=== PATIENT | male | born 1940 | race Caucasian/White ===

== ENCOUNTER 2022-02-28 18:57 | Inpatient (IN) | payer MEDICARE, OTHER ==
[~2022-02-28] VITALS: Ht 172.7 cm; Wt 65.8 kg
--- NOTE | 2022-02-28 19:05 | NUR ---
RECEIVED PT 81 YRS MALE TRANSFER FROM [facility] WITH ALOC ( ALTER THEN NORMAL AND LOW O2 SAT PT EYE CONTACT WITH
--- NOTE | 2022-02-28 19:26 | NUR ---
COVID ANTIGEN SWAB DONE AND SENT TO THE LAB
[2022-02-28] MEDS ORDERED: CEFEPIME 1 GM in IV D5W 50 ML IV ONE (19:30)
[2022-02-28] MEDS ORDERED: VANCOMYCIN 1 GM in IV D5W 250 ML IV ONE (19:30)
--- NOTE | 2022-02-28 19:30 | NUR ---
URINE COLLECTED AND SENTT O LAB
--- NOTE | 2022-02-28 19:34 | NUR ---
HAND OFF ADELITA RN
[2022-02-28] MEDS ORDERED: IV NS 0.9% 2,000 ML IV ONE (20:00)
[2022-02-28] MEDS ORDERED: ACETAMINOPHEN 650 MG/SUPP.RECT RC ONE (20:00)
[2022-02-28 20:02] LABS: BILIRUBIN,URINE NEGATIVE (NEGATIVE); COLOR,URINE YELLOW (YELLOW); LEUKOCYTE ESTERASE ,URINE NEGATIVE (NEGATIVE); NITRITE, URINE NEGATIVE (NEGATIVE); PH,URINE 5.5 (5.0-8.0); PROTEIN,URINE 30 mg/dl (NEGATIVE); UGLUCOSE NEGATIVE (NEGATIVE); UROBILINOGEN,URINE 0.2 EU/dL (0.2)
--- NOTE | 2022-02-28 20:03 | NUR ---
[facility] (POA)[phone]/ ELMO (DAUGHTER) IS ALLOWED TO RECEIVE UPDATE ABOUT HIS FATHER.
--- NOTE | 2022-02-28 20:06 | NUR ---
ER CLERK TRAVEL RESERVATIONS AT BEDSIDE
--- NOTE | 2022-02-28 20:13 | NUR ---
PATIENT PASSED A LARGE BOWEL MOVEMENT, CHANGED AND CLEANED.
[2022-02-28 20:15] LABS: BACTERIA,URINE RARE /HPF (None Seen); RBC,URINE 21-50 /HPF (0-2); SQUAMOUS EPITHELIAL CELL,UR 0-2 /HPF (None Seen); WBC,URINE 0-2 /HPF (0-3)
[2022-02-28 20:16] LABS: CALCIUM OXALATE CRYSTALS,UR Few /HPF (None Seen); URIC ACID CRYSTALS,URINE Moderate /HPF (None Seen)
[2022-02-28 20:41] LABS: BASOPHILS # (AUTO) 0.4 K/uL (0.0-0.2); BASOPHILS % (AUTO) 0.6 % (0.0-2.0); HEMATOCRIT 34 % (39-51); HEMOGLOBIN 10.1 g/dL (13.5-17.5); LYMPHOCYTES # (AUTO) 0.6 K/uL (0.8-4.8); LYMPHOCYTES % (AUTO) 0.9 % (20.0-44.0); MEAN CORPUSCULAR HGB CONC 30 g/dl (31.0-36.0); MEAN CORPUSCULAR VOLUME 85 fL (80-96); MONOCYTES # (AUTO) 1.2 K/uL (0.1-1.30); MONOCYTES % (AUTO) 1.9 % (2.0-12.0); NEUTROPHILS # (AUTO) 60.8 K/uL (1.8-8.9); NEUTROPHILS % (AUTO) 96.6 % (43.0-81.0); PLATELET COUNT (AUTO) 494 K/uL (150-450); RED BLOOD CELL COUNT(AUTO) 3.94 MIL/uL (4.5-6.0)
[2022-02-28 20:48] LABS: CALCIUM, SERUM 9.4 mg/dL (8.5-10.1); CARBON DIOXIDE 22 mmol/L (21-32); CHLORIDE 108 mmol/L (98-107); CREATININE 1.6 mg/dL (0.6-1.3); GLUCOSE 130 mg/dL (74-106); POTASSIUM 4.3 mmol/L (3.5-5.1); SODIUM SERUM 141 mmol/L (136-145); UREA NITROGEN, BLOOD 27 mg/dL (7-18)
[2022-02-28 20:59] LABS: THYROID STIMULATING HORMONE 13.396 uIU/mL (0.358-3.74)
[2022-02-28 21:01] LABS: ALANINE AMINOTRANSFERASE 21 U/L (12-78); ALBUMIN 1.8 g/dL (3.4-5.0); ALKALINE PHOSPHATASE 99 U/L (46-116); ASPARTATE AMINOTRANSFERASE 31 U/L (15-37); BILIRUBIN,DIRECT 0.1 mg/dL (0.0-0.2); BILIRUBIN,TOTAL 0.4 mg/dL (0.2-1.0); TOTAL PROTEIN, SERUM 6.6 g/dL (6.4-8.2)
[2022-02-28 21:03] LABS: ALCOHOL, BLOOD < 3 mg/dL (0-0)
[2022-02-28] MEDS ORDERED: IOHEXOL-300 100 ML VIAL IV ONE (21:07)
[2022-02-28 21:43] LABS: SERUM AMMONIA 53 umol/L (11-32)
[2022-02-28 21:44] LABS: BAND % (MANUAL) 2 % (0.0-5.0); LYMPHOCYTES % (MANUAL) 3 % (16-48); MONOCYTES % (MANUAL) 4 % (0-11.0); NEUTROPHILS % (MANUAL) 91 (42-76)
--- NOTE | 2022-02-28 21:48 | NUR ---
[facility] PAGED
--- NOTE | 2022-02-28 22:29 | NUR ---
REPORT GIVEN TO JUAN LANGE
--- NOTE | 2022-02-28 22:30 | NUR ---
RN NOTE RECEIVED REPORT FROM FIELD SERVICE TECHNICIAN POULTRYJUAN RUIZ
--- NOTE | 2022-02-28 22:46 | NUR ---
TROP 91
--- NOTE | 2022-02-28 23:02 | NUR ---
pt transferred to 103 via acls
--- NOTE | 2022-02-28 23:08 | NUR ---
RN NOTE RADIOLOGY ESCORTED PT FOR HEAD AND CHEST CT.
--- NOTE | 2022-02-28 23:27 | NUR ---
RN NOTE PT RETURNED FROM RADIOLOGY
--- NOTE | 2022-02-28 23:41 | NUR ---
RN INITIAL NOTE PT WITH ADMITTING DX OF SEVERE SEPSIS AND NSTEMI. MEDICAL HX OF DEMENTIA, CHOLECYSTECTOMY, AMS, ENCEPHALOPATHY, AFLUTTER, PNEUMONITIS, UTI, GI HEMORRHAGE HEMORRHAGE, CAROL, MDD, OA, ANEMIA, HYPOVOLEMIA, MRSA, MELENA. PT ARRIVED TO UNIT VIA GURNEY. PT NOTED TO BE NON-VERBAL THEREFORE CANNOT ASSESS NEURO STATUS, BUT DOES MAKE MOANING NOISES. PT ON NC AT 3L WITH CURRENT O2SAT OF 97%; NO S/S OF RESP DISTRESS, NO SOB OR COUGH, NON-LABORED AND EQUAL BREATHING, APPEARS COMFORTABLE. ATTACHED TO EXTERNAL MONITOR, SR WITH HR OF 93. SHANKAR INTACT AND PATENT WITH NO SIGNS OF LEAKING, DRAINING CLEAR AND YELLOW URINE. PT NOTED TO HAVE RECTAL HEMORRHOID. IV ACCESS ON LEFT HAND 18G, INTACT AND PATENT, FLUSHES EASILY WITH NO RESISTANCE; CURRENTLY HAS NO FLUIDS/MEDS RUNNING THROUGH IT. SKIN ASSESSED AND CLEANED, PICTURES TAKEN AND PLACED IN CHART. BED IN LOWEST POSITION, CALL LIGHT WITHIN REACH, SIDE RAILS UP X3. WILL INITIATE PLAN OF CARE.
[2022-03-01] VITALS: BP 141/61
[2022-03-01] MEDS ORDERED: ONDANSETRON HCL/PF 4 MG/2 ML VIAL IVP PRN
[2022-03-01] MEDS ORDERED: MAGNESIUM HYDROXIDE 30 ML UDC PO PRN
[2022-03-01] MEDS ORDERED: Z GUARD REMEDY 4 OZ OINT TP PRN
[2022-03-01] MEDS ORDERED: ACETAMINOPHEN 650 MG/SUPP.RECT RC PRN
[2022-03-01] MEDS ORDERED: MAG HYDROX/AL HYDROX/SIMETH 30 ML UDC PO PRN
[2022-03-01] MEDS ORDERED: ZOSYN IVPB 3.375 G in IV D5W 50ml IV ONE (01:00)
[2022-03-01] MEDS: IV D5/0.45 NACL 1,000 ML IV PRN ×2 (01:01→16:42)
[2022-03-01] MEDS ORDERED: PIPERACILLIN /TAZOBACTAM 3.375 G VIAL IV ONE (01:02)
[2022-03-01 04:00] VITALS: BP 99/53
--- NOTE | 2022-03-01 04:53 | NUR ---
RN NOTE SPOKE TO PT'S DAUGHTER ELMO AND PROVIDED WITH UPDATES.
--- NOTE | 2022-03-01 04:55 | NUR ---
RN NOTE ELMO (DAUGHTER):
--- NOTE | 2022-03-01 06:40 | NUR ---
PHARMACY INTAKE COORDINATOR CLOSING NOTE PT REMAINS IN BED, AWAKE, UNABLE TO MAKE VERBAL RESPONSE WHEN TALKED TO. PT REMAINS ON 3L NC WITH O2SAT RANGING FROM 96%-97% THROUGHOUT THE NIGHT; PT SHOWED NO S/S OF RESP DISTRESS, NO SOB OR COUGH, NON-LABORED AND EQUAL BREATHING. ATTACHED TO EXTERNAL MONITOR, SR WITH ARTIFACTS D/T PT'S INVOLUNTARY MOVEMENTS, HR RANGED FROM 93-97; HR NOTED TO BE ELEVATED UP TO 170 WHEN CLEANING PT. SHANKAR INTACT AND PATENT, NO SIGNS OF LEAKING, DRAINING NYLA-COLORED URINE. IV ACCESS ON LEFT HAND 18G, D5 1/2 NS RUNNIGN AT 75 ML/HR; IV INTACT AND PATENT, FLUSHES EASILY WITH NO RESISTANCE. BED IN LOWEST POSITION, CALL LIGHT WITHIN REACH, SIDE RAILS UP X3. WILL ENDORSE TO DAYSHIFT NURSE TO CONTINUE CARE.
[2022-03-01 07:15] LABS: BASOPHILS # (AUTO) 0.1 K/uL (0.0-0.2); BASOPHILS % (AUTO) 0.2 % (0.0-2.0); HEMATOCRIT 31 % (39-51); HEMOGLOBIN 9.2 g/dL (13.5-17.5); LYMPHOCYTES % (AUTO) 2.1 % (20.0-44.0); MEAN CORPUSCULAR HGB CONC 30 g/dl (31.0-36.0); MEAN CORPUSCULAR VOLUME 86 fL (80-96); MONOCYTES # (AUTO) 1.6 K/uL (0.1-1.30); MONOCYTES % (AUTO) 3.3 % (2.0-12.0); NEUTROPHILS # (AUTO) 46.1 K/uL (1.8-8.9); NEUTROPHILS % (AUTO) 94.4 % (43.0-81.0); PLATELET COUNT (AUTO) 417 K/uL (150-450); RED BLOOD CELL COUNT(AUTO) 3.54 MIL/uL (4.5-6.0)
--- NOTE | 2022-03-01 07:15 | NUR ---
RN OPEN NOTE PT REMAINS IN BED, AWAKE, NON VERBAL PT IS ON 3L NC WITH O2SAT RANGING FROM 96%PT SHOWED NO S/S OF RESP DISTRESS, NO SOB OR COUGH, NON-LABORED AND EQUAL BREATHING. SR WITH , HR RANGED FROM 97; AT ORTHOPEDIC SURGEON HR NOTED TO BE ELEVATED UP TO 170 WHEN CLEANING PT. HAS SHANKAR CATH IN PLACE DRAINING NYLA COLOR URINE, IV ACCESS ON LEFT HAND 18G, D5 1/2 NS RUNNING AT 75 ML/HR; IV INTACT AND PATENT, FLUSHES EASILY WITH NO RESISTANCE. BED IN LOWEST POSITION, CALL LIGHT WITHIN REACH, SIDE RAILS UP X3. WILL CONTINUE TO FALLOW PLAN OF CARE
[2022-03-01 07:26] LABS: WHITE BLOOD COUNT (AUTO) 48.9 K/uL (4.3-11.0)
[2022-03-01 07:35] LABS: CALCIUM, SERUM 8.5 mg/dL (8.5-10.1); CREATININE 1.3 mg/dL (0.6-1.3); MAGNESIUM 2.3 mg/dL (1.8-2.4); PHOSPHORUS 2.2 mg/dL (2.5-4.9); POTASSIUM 4.2 mmol/L (3.5-5.1)
[2022-03-01] MEDS: PIPERACILLIN /TAZOBACTAM 2.25 G in IV D5W 50 ML IV SCH ×3 (07:43→17:13)
[2022-03-01 08:00] VITALS: BP 146/94
[2022-03-01] MEDS: PANTOPRAZOLE 40 MG VIAL IV SCH (08:45)
[2022-03-01] MEDS: HEPARIN SODIUM, PORCINE 5000 UNITS/1 ML VIAL SQ SCH ×2 (08:49→21:21)
--- NOTE | 2022-03-01 09:11 | NUR ---
patient on multiple iv meds,only have one line hard stick,requested midline .
[2022-03-01] MEDS ORDERED: Sodium Phosphate 15 MMOL in IV NS 0.9% 245 ML IV SCH (11:00)
[2022-03-01 12:00] VITALS: BP 112/60
[2022-03-01] MEDS ORDERED: NA PHOS,M-B/NA PHOS,DI-BA 1 EA ENEMA RC PRN ×2 (12:30)
--- NOTE | 2022-03-01 15:52 | NUR ---
unable to tolerate ngt placement,desaturates to low 80's,and ngt coiling,pt. c/o nose bleed already, notified.
[2022-03-01 16:00] VITALS: BP 109/60
--- NOTE | 2022-03-01 18:25 | NUR ---
PATIENT IS IN BED , NON VERBAL , CONFUSED, NPO BECAUSE TO FAILURE SWALLOWING TEST , MULTIPLE ATTEMPTS TO PLACE NG TUNE WAS NOT SUCCESSFUL , PENDING SPOUSE CONSENT FOR G TUBE , SPOUSE WANTS TO PATIENT RECEIVED ANTIBIOTICS FOR FEW DAYS AND HOPING THAT PATIENT WILL BE ABLE TO SWALLOW . PATIENT IS ON O2 2 3L/H , BREATHING NON LABORED , NO SIGHS OF DISTRESS. 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 PATIENT HAS SHANKAR VATH IN PLCE DRANING CLEAR YELLOW URINE. MEDICATIONS WERE ADMINISTERED , ALL NEEDS ARE MET . BED IS AT LOWEST , BED SIDE RAILS ARE UP , CALL LIGHT WITHIN REACH .
--- NOTE | 2022-03-01 19:10 | NUR ---
RN NOTE RECEIVED PT IN BED, ON SEMI GAY'S, AO X 1, IN NO ACUTE DISTRESS, BREATHING EVEN AND UNLABORED, SATURATION AT 99% ON 3L VIA NC, ST ON THE MONITOR, HR IS 109. IV LINE AT L HAND 18G AND RE MIDLINE PATENT AND FLUSHING WELL, NO S/S OF INFECTION OR INFILTRATION, IV FLUID OF D5 1/2 NS INFUSING AT 75 ML/HR CHANGED TO NS AT 75 ML/HR PER MD ORDER. SHANKAR CATHETER DRAINING TO A C LEAR YELLOW OUTPUT. SAFETY MEASURES IMPLEMENTED. PATIENT BED ALARM IS ON. HEAD OF BED ELEVATED. BED IS LOCKED, IN LOWEST POSITION AND SIDE RAILS UP. CALL LIGHT WITHIN REACH OF THE PATIENT. WILL CONTINUE TO MONITOR AND REASSESS FOR ANY CHANGES.
[2022-03-01] MEDS: VANCOMYCIN 1 GM in IV D5W 250 ML IV SCH (19:53)
[2022-03-01 20:00] VITALS: BP 102/54
[2022-03-01] MEDS ORDERED: VANCOMYCIN 0.75 GM in IV D5W 250 ML IV SCH (20:00)
[2022-03-01] MEDS: IV NS 0.9% 1,000 ML IV PRN (21:13)
[2022-03-02] VITALS: BP 99/42
[2022-03-02] MEDS: PIPERACILLIN /TAZOBACTAM 2.25 G in IV D5W 50 ML IV SCH ×4 (00:28→17:39)
[2022-03-02 04:00] VITALS: BP 127/51
--- NOTE | 2022-03-02 05:00 | NUR ---
RN NOTE NG TUBE INSERTED BY ELEVATOR MECHANIC APPRENTICE, POSITIVE PLACEMENT NOTED BY AUSCULTATION BUT NO OUTPUT NOTED ON ASPIRATION. CXR WAS DONE TO VERIFY PLACEMENT, AWAITING RESULTS.
--- NOTE | 2022-03-02 06:07 | NUR ---
RN NOTE CXR RESULTED STATED NO ACUTE FINDINGS AT CHEST COMPARED TO PREVIOUS CXR ON 02/28/2022 BUT NO MENTION OF NG TUBE PLACEMENT. TELEPHONE CALL TO RADIOLOGY. NO ANSWER AFTER MULTIPLE ATTEMPTS. WILL TRY AGAIN.
[2022-03-02 06:54] LABS: BASOPHILS % (AUTO) 0.1 % (0.0-2.0); EOSINOPHILS % (AUTO) 0.2 % (0.0-6.0); HEMATOCRIT 28 % (39-51); HEMOGLOBIN 8.5 g/dL (13.5-17.5); LYMPHOCYTES # (AUTO) 0.7 K/uL (0.8-4.8); LYMPHOCYTES % (AUTO) 2.1 % (20.0-44.0); MEAN CORPUSCULAR HGB CONC 31 g/dl (31.0-36.0); MEAN CORPUSCULAR VOLUME 83 fL (80-96); MONOCYTES # (AUTO) 1.1 K/uL (0.1-1.30); MONOCYTES % (AUTO) 3.3 % (2.0-12.0); NEUTROPHILS # (AUTO) 30.6 K/uL (1.8-8.9); NEUTROPHILS % (AUTO) 94.3 % (43.0-81.0); PLATELET COUNT (AUTO) 395 K/uL (150-450); RED BLOOD CELL COUNT(AUTO) 3.31 MIL/uL (4.5-6.0)
--- NOTE | 2022-03-02 06:57 | NUR ---
RN NOTE TELEPHONE CALL TO PHARMACY REGARDING CXR RESULT STATING NO ACUTE FINDINGS AT CHEST COMPARED TO PREVIOUS CXR ON 02/28/2022 BUT NO MENTION OF NG TUBE PLACEMENT. SPOKE WITH JESSICA, STATED HE WILL CALL STAT MANUELITO VAZQUEZ TO VERIFY AND WILL CALL BACK. ENDORSED TO FRAN MARTINEZ TO FOLLOW UP.
[2022-03-02 06:58] LABS: WHITE BLOOD COUNT (AUTO) 32.4 K/uL (4.3-11.0)
[2022-03-02 07:25] LABS: CALCIUM, SERUM 8.3 mg/dL (8.5-10.1); CREATININE 1.3 mg/dL (0.6-1.3); MAGNESIUM 1.9 mg/dL (1.8-2.4); PHOSPHORUS 2.4 mg/dL (2.5-4.9); POTASSIUM 3.1 mmol/L (3.5-5.1)
--- NOTE | 2022-03-02 07:30 | NUR ---
RN OPENING NOTE PATIENT LAYING ON THE BED AWAKE A&OX1. ALL VSS, PATIENT SATTING AT 100% ON 2L NC. SR. VOIDING VIA SHANKAR CATHETER. DIET NPO. IV L HAND #18G PATENT, INTACT, AND FLUSHED WITH NS. RE MIDLINE NS @75ML/HR. ALL SAFETY FALL PRECAUTIONS IN PLACE BED LOCK ON, BED ALARM ON, SIDE RAILS UP, CALL LIGHT WITHIN REACH. BED IN LOWEST POSITION. WILL CONTINUE TO MONITOR.
[2022-03-02 07:49] LABS: LYMPHOCYTES % (MANUAL) 4 % (16-48); MONOCYTES % (MANUAL) 3 % (0-11.0); NEUTROPHILS % (MANUAL) 93 (42-76)
[2022-03-02 08:00] VITALS: BP 143/85
[2022-03-02] MEDS ORDERED: POTASSIUM PHOSPHATE MM 15 MMOL in IV NS 0.9% 250 ML IV SCH (09:00)
[2022-03-02] MEDS: PANTOPRAZOLE 40 MG VIAL IV SCH (09:32)
[2022-03-02] MEDS: POTASSIUM PHOSPHATE MM 7.5 MMOL in IV NS 0.9% 100 ML IV SCH ×2 (09:32→12:39)
[2022-03-02] MEDS: HEPARIN SODIUM, PORCINE 5000 UNITS/1 ML VIAL SQ SCH ×2 (09:35→20:27)
[2022-03-02] MEDS ORDERED: PANT40TA2 PO (09:51)
[2022-03-02] MEDS ORDERED: ASCO-340 PO (09:51)
[2022-03-02] MEDS ORDERED: COLL30OI TP (09:51)
[2022-03-02] MEDS ORDERED: MULT-447 PO (09:51)
[2022-03-02] MEDS ORDERED: POVI3780 TP (09:51)
[2022-03-02] MEDS ORDERED: CHOL500062 PO (09:51)
[2022-03-02] MEDS ORDERED: LOSA50TA39 PO (09:51)
[2022-03-02] MEDS ORDERED: TYL2T PO (09:51)
[2022-03-02] MEDS ORDERED: NYST15OI2 TP (09:51)
[2022-03-02] MEDS ORDERED: FLUO20CA42 PO (09:51)
[2022-03-02] MEDS ORDERED: VITA1TAB56 PO (09:51)
[2022-03-02] MEDS ORDERED: MEMA10TA PO (09:51)
[2022-03-02] MEDS ORDERED: GABA250S2 PO (09:51)
[2022-03-02] MEDS ORDERED: ZINC1CAP3 PO (09:51)
[2022-03-02] MEDS ORDERED: LEVE500T9 PO (09:51)
[2022-03-02] MEDS ORDERED: POTA20TA83 PO (09:51)
[2022-03-02] MEDS ORDERED: APIX2.5T PO (09:51)
[2022-03-02] MEDS ORDERED: ACET-868 PO (09:51)
[2022-03-02] MEDS: POTASSIUM CL. PREMIX PERIPHER. 50 ML IV SCH ×2 (11:51→12:40)
[2022-03-02 12:00] VITALS: BP 115/70
[2022-03-02 16:00] VITALS: BP 113/55
[2022-03-02 16:51] LABS: D-DIMER 3.63 mg/L(FEU (0.17-0.50)
--- NOTE | 2022-03-02 19:09 | NUR ---
Ending report patient stable all vss care endorsed to night filler.
[2022-03-02 20:00] VITALS: BP 109/64
[2022-03-02] MEDS: VANCOMYCIN 1 GM in IV D5W 250 ML IV SCH (20:26)
[2022-03-02] MEDS: JEVITY 1.2 CAL 1,000 ML BOTTLE GT SCH (20:35)
[2022-03-03] VITALS: BP 108/81
[2022-03-03] MEDS: PIPERACILLIN /TAZOBACTAM 2.25 G in IV D5W 50 ML IV SCH ×5 (00:04→23:25)
[2022-03-03 04:00] VITALS: BP 123/57
[2022-03-03] MEDS: IV NS 0.9% 1,000 ML IV PRN ×2 (04:17→17:28)
--- NOTE | 2022-03-03 06:44 | NUR ---
RN CLOSING NOTE A/OX1, CONFUSED. 2l VIA nc. NO S/S SOB. NO C/O PAIN. SINUS RHYTHM WITH PVCS ON THE MONITOR. SHANKAR CATHETER DRAINING TO GRAVITY, URINE YELLOW WITH SEDIMENT. NO BM THIS SHIFT. PENDING OB STOOL COLLECTION. BILATERAL SOFT WRIST RESTRAINTS PRESENT, NO REDNESS, GOOD CAP REDILL. MEPILEX ON WOUNDS PENDING WOUND CONSULT. NG TUBE PRESENT, JEVITY STARTED AT 20ML, NO RESIDUAL , INCREASED TO 30ML AT 0200. RE RUNNING NS@75ML/HR. PENDING ECHO.
[2022-03-03 07:17] LABS: BASOPHILS % (AUTO) 0.1 % (0.0-2.0); EOSINOPHILS % (AUTO) 0.8 % (0.0-6.0); HEMATOCRIT 24 % (39-51); HEMOGLOBIN 7.4 g/dL (13.5-17.5); LYMPHOCYTES # (AUTO) 0.9 K/uL (0.8-4.8); LYMPHOCYTES % (AUTO) 5.7 % (20.0-44.0); MEAN CORPUSCULAR HGB CONC 31 g/dl (31.0-36.0); MEAN CORPUSCULAR VOLUME 83 fL (80-96); MONOCYTES # (AUTO) 0.7 K/uL (0.1-1.30); MONOCYTES % (AUTO) 4.4 % (2.0-12.0); NEUTROPHILS # (AUTO) 14.4 K/uL (1.8-8.9); PLATELET COUNT (AUTO) 310 K/uL (150-450); RED BLOOD CELL COUNT(AUTO) 2.86 MIL/uL (4.5-6.0); WHITE BLOOD COUNT (AUTO) 16.1 K/uL (4.3-11.0)
--- NOTE | 2022-03-03 07:25 | NUR ---
SUPERVISOR OFFSET PLATE PREPARATION OPENING NOTES RECEIVED PT ASLEEP IN BED, EASILY AROUSED. PT IS A/O x1, REORIENTED PT NEEDED. ON O2 AT 2L/MIN VIA NASAL CANNULA, TOLERATING WELL. NO SOB NOTED. NOT IN ANY SIGN OF RESPIRATORY DISTRESS. ON CARDIAC TELE MONITOR WITH CURRENT READING SINUS RHYTHM WITH PVCS, HR 82. IV ACCESS ON RE MIDLINE INTACT AND PATENT WITH NS INFUSING AT 75ML/HR. NG TUBE IN PLACE WITH JEVITY 1.2 FEEDING RUNNING AT 30ML/HR. KEPT HEAD OF BED ELEVATED. SAFETY PRECAUTIONS IN PLACE: BED IN LOWEST AND LOCKED POSITION, BED ALARM ON, SIDE RAILS UP, AND CALL LIGHT WITHIN REACH. WILL CONTINUE TO MONITOR PT.
[2022-03-03 07:56] LABS: CALCIUM, SERUM 7.6 mg/dL (8.5-10.1); CREATININE 1.3 mg/dL (0.6-1.3); PHOSPHORUS 2.1 mg/dL (2.5-4.9)
[2022-03-03 08:00] VITALS: BP 130/56
[2022-03-03 08:01] LABS: POTASSIUM 2.8 mmol/L (3.5-5.1)
--- NOTE | 2022-03-03 08:05 | NUR ---
RN NOTE INCREASED PT'S NGT FEEDING FROM 30ML/HR TO 40ML/HR ORDERED TO INCREASE 10ML Q6HRS TO REACH THE GOAL OF 60ML/HR. LAST NGT FEEDING INCREASE WAS AT 0200. PT ABLE TO TOLERATE CURRENT FEEDING SETTINGS. RESIDUAL WAS 5ML. WILL CONTINUE TO MONITOR PT.
[2022-03-03 08:06] LABS: IMMUNOGLOBULIN A, SERUM 257 mg/dL (61-437); IMMUNOGLOBULIN G, SERUM 1148 mg/dL (603-1613); IMMUNOGLOBULIN M, SERUM 86 mg/dL (15-143)
[2022-03-03] MEDS: PANTOPRAZOLE 40 MG/PACK PACK GT SCH (09:57)
[2022-03-03] MEDS: HEPARIN SODIUM, PORCINE 5000 UNITS/1 ML VIAL SQ SCH ×2 (09:59→21:06)
[2022-03-03] MEDS ORDERED: NEUTRA PHOS 1 POWD.PACKET GT ONE (10:00)
[2022-03-03] MEDS ORDERED: POTASSIUM CHLORIDE 20 MEQ POWDER PACKET GT SCH (10:00)
--- NOTE | 2022-03-03 10:03 | NUR ---
RN NOTE PT IS SCHEDULED FOR HEPARIN SQ AT 0900. AB PANTOJA NP MADE AWARE OF PT'S HEMOGLOBIN DECREASED. HEMOGLOBIN WAS 8.5 YESTERDAY 03/02/22 TO HEMOGLOBIN 7.4 TODAY. PER AB, TO STILL ADMINISTER HEPARIN SQ.
--- NOTE | 2022-03-03 10:11 | NUR ---
RN NOTE PT SEEN BY AB PANTOJA NP WITH ORDERS OF ST EVALUATION DUE TO DIFFICULTY SWALLOWING.
--- NOTE | 2022-03-03 10:32 | NUR ---
WOUND CARE CONSULT: PT RESTING AT THIS TIME. REVIEWED CHART, NURSING DOCUMENTATION ANDPHOTOS WHICH INDICATE RT HIP INTACT DEEP TISSUE INJURY/SCARRING, RT HEEL ULCER AND SACRAL DEEP TISSUE INJURY, ALL PRESENT ON ADMISSION. DR FLOWERS AND DR KILLIAN NOTIFIED OF SURGICAL AND DPM CONSULT REQUESTS. PT IS ON VIC ISOFLEX LOW AIRLOSS BED. DISCUSSED SKIN PROTECTION WITH NURSING STAFF. M D IN AGREEMENT WITH PLAN OF CARE.
[2022-03-03 12:00] VITALS: BP 130/54
--- NOTE | 2022-03-03 14:05 | NUR ---
RN NOTE INCREASED PT'S NGT FEEDING AGAIN FROM 40ML/HR TO 50ML/HR ORDERED UNTIL 60ML/HR IS REACHED. PT ABLE TO TOLERATE CURRENT FEEDING SETTINGS WITH 5ML RESIDUAL. WILL CONTINUE TO MONITOR PT.
--- NOTE | 2022-03-03 14:40 | NUR ---
RN NOTE RECEIVED AN ORDER FROM AB PANTOJA NP, TO START PATIENT ON MILD SLIDING SCALE Q6HRS DUE TO PT BEING ON NG TUBE FEEDING.
[2022-03-03] MEDS ORDERED: DEXTROSE 50%-WATER 50 ML DISP.SYRIN IV PRN (15:00)
[2022-03-03 16:00] VITALS: BP 119/59
[2022-03-03] MEDS: BLOOD SUGAR DIAGNOSTIC 1 EACH STRIP IN SCH ×2 (17:28→23:35)
[2022-03-03] MEDS: INSULIN REGULAR, HUMAN 100 UNIT/ML 3 ML VIAL SQ PRN ×2 (17:29→23:24)
--- NOTE | 2022-03-03 18:36 | NUR ---
DISPATCHER TUGBOAT CLOSING NOTES PT IN BED AWAKE WITH AT BEDSIDE. PT IS A/O x1, REORIENTED PT NEEDED. ON O2 AT 2L/MIN VIA NASAL CANNULA, TOLERATING WELL. NO SOB NOTED. NOT IN ANY SIGN OF RESPIRATORY DISTRESS. ON CARDIAC TELE MONITOR WITH CURRENT READING SINUS RHYTHM WITH PVCS, HR 75. NO SIGNS OF CARDIAC DISTRESS NOTED AT THIS TIME. IV ACCESS ON RE MIDLINE INTACT AND PATENT WITH NS INFUSING AT 75ML/HR. PT'S BOTH WRIST SOFT RESTRAINTS IN PLACE WITH NO CIRCULATION OR SKIN ISSUES NOTED. NG TUBE IN PLACE WITH JEVITY 1.2 FEEDING RUNNING AT 50ML/HR. KEPT HEAD OF BED ELEVATED. ALL NEEDS ATTENDED. KEPT CLEAN AND COMFORTABLE. TURNED AND REPOSITIONED Q2HRS AND NEEDED. SAFETY PRECAUTIONS IN PLACE: BED IN LOWEST AND LOCKED POSITION, BED ALARM ON, SIDE RAILS UP, AND CALL LIGHT WITHIN REACH. WILL ENDORSE TO COPY COORDINATOR NURSE FOR MATT.
--- NOTE | 2022-03-03 19:38 | NUR ---
STRIPPER CUTTER MACHINE OPENING NOTES: RECEIVED PT AWAKE IN BED. A/O x1, REORIENTED PT NEEDED. ON O2 AT 2L/MIN VIA NASAL CANNULA, TOLERATING WELL. NO SOB NOTED. NOT IN ANY SIGN OF RESPIRATORY DISTRESS. ON CARDIAC TELE MONITOR WITH CURRENT READING SINUS RHYTHM WITH PVCS. IV ACCESS ON RE MIDLINE INTACT AND PATENT WITH NS INFUSING AT 75ML/HR. NG TUBE IN PLACE WITH JEVITY 1.2 FEEDING RUNNING AT 50ML/HR. KEPT HEAD OF BED ELEVATED. SAFETY PRECAUTIONS IN PLACE: BED IN LOWEST AND LOCKED POSITION, BED ALARM ON, SIDE RAILS UP, AND CALL LIGHT WITHIN REACH. WILL CONTINUE TO MONITOR THROUGHOUT THE SHIFT.
[2022-03-03 20:00] VITALS: BP 111/57
[2022-03-03] MEDS: VANCOMYCIN 1 GM in IV D5W 250 ML IV SCH (20:57)
--- NOTE | 2022-03-03 23:35 | NUR ---
RN NOTE BS CHECKED AT 145 MG/DL, 2 UNITS INSULIN GIVEN PER SLIDING SCALE, WILL CONT TO MONITOR.
[2022-03-04] VITALS: BP 140/62
[2022-03-04] MEDS: JEVITY 1.2 CAL 1,000 ML BOTTLE GT SCH ×2 (00:04→21:12)
[2022-03-04 04:00] VITALS: BP 114/52
[2022-03-04] MEDS: PIPERACILLIN /TAZOBACTAM 2.25 G in IV D5W 50 ML IV SCH (05:36)
[2022-03-04] MEDS: BLOOD SUGAR DIAGNOSTIC 1 EACH STRIP IN SCH ×4 (05:36→23:25)
[2022-03-04] MEDS: INSULIN REGULAR, HUMAN 100 UNIT/ML 3 ML VIAL SQ PRN (05:38)
--- NOTE | 2022-03-04 05:56 | NUR ---
RN NOTE BS CHECKED AT 132 MG/DL, 2 UNITS INSULIN GIVEN PER SLIDING SCALE.
--- NOTE | 2022-03-04 06:46 | NUR ---
CLINICAL AIDE CLOSING NOTES: PATIENT REMAINS IN BED. A/O x1, ON O2 AT 2L/MIN VIA NASAL CANNULA, TOLERATING WELL. NO SOB NOTED. NOT IN ANY SIGN OF RESPIRATORY DISTRESS. ON CARDIAC TELE MONITOR WITH CURRENT READING SINUS RHYTHM WITH PVCS. IV ACCESS ON RE MIDLINE INTACT AND PATENT WITH NS INFUSING AT 75ML/HR. NG TUBE IN PLACE WITH JEVITY 1.2 FEEDING RUNNING AT 60ML/HR. KEPT HEAD OF BED ELEVATED. WITH FOLEYCATH DRAINING TO GRAVITY WITH YELLOWISH COLORED URINE. SAFETY PRECAUTIONS IN PLACE, ALL DUE MEDS GIVEN, KEPT DRY AND CLEAN, BED IN LOWEST AND LOCKED POSITION, BED ALARM ON, SIDE RAILS UP, AND CALL LIGHT WITHIN REACH. WILL ENDORSE TO AM SHIFT NURSE. .
[2022-03-04 07:07] LABS: *SPE A/G RATIO 0.6 (0.7-1.7); *SPE ALPHA-1-GLOBULIN 0.4 g/dL (0.0-0.4); *SPE ALPHA-2-GLOBULIN 0.8 g/dL (0.4-1.0); *SPE BETA GLOBULIN 0.6 g/dL (0.7-1.3); *SPE M-SPIKE Not Observed g/dL (Not Observed)
[2022-03-04 07:26] LABS: BASOPHILS % (AUTO) 0.2 % (0.0-2.0); HEMATOCRIT 25 % (39-51); LYMPHOCYTES % (AUTO) 10.3 % (20.0-44.0); MEAN CORPUSCULAR HGB CONC 33 g/dl (31.0-36.0); MEAN CORPUSCULAR VOLUME 83 fL (80-96); MONOCYTES # (AUTO) 0.7 K/uL (0.1-1.30); MONOCYTES % (AUTO) 7.3 % (2.0-12.0); NEUTROPHILS % (AUTO) 81.2 % (43.0-81.0); PLATELET COUNT (AUTO) 336 K/uL (150-450); RED BLOOD CELL COUNT(AUTO) 2.97 MIL/uL (4.5-6.0); WHITE BLOOD COUNT (AUTO) 9.8 K/uL (4.3-11.0)
--- NOTE | 2022-03-04 07:34 | NUR ---
RN OPENING NOTES: PATIENT REMAINS IN BED. A/O x1, ON O2 AT 2L/MIN VIA NASAL CANNULA, TOLERATING WELL. NO SOB NOTED. NOT IN ANY SIGN OF RESPIRATORY DISTRESS. ON CARDIAC TELE MONITOR WITH CURRENT READING SINUS RHYTHM WITH PVCS. IV ACCESS ON RE MIDLINE INTACT AND PATENT WITH NS INFUSING AT 75ML/HR. NG TUBE IN PLACE WITH JEVITY 1.2 FEEDING RUNNING AT 60ML/HR. KEPT HEAD OF BED ELEVATED. WITH SHANKAR CATHETER DRAINING TO GRAVITY WITH YELLOWISH COLORED URINE. SAFETY PRECAUTIONS IN PLACE, BED IN LOWEST AND LOCKED POSITION, BED ALARM ON, SIDE RAILS UP, AND CALL LIGHT WITHIN REACH. WILL CONTINUE PLAN OF CARE AND ANTICIPATE NEEDS.
[2022-03-04 07:47] LABS: CREATININE 1.3 mg/dL (0.6-1.3); MAGNESIUM 1.9 mg/dL (1.8-2.4); PHOSPHORUS 1.6 mg/dL (2.5-4.9); POTASSIUM 3.7 mmol/L (3.5-5.1)
[2022-03-04 08:00] VITALS: BP 125/69
[2022-03-04] MEDS: PANTOPRAZOLE 40 MG/PACK PACK GT SCH (09:32)
[2022-03-04] MEDS: HEPARIN SODIUM, PORCINE 5000 UNITS/1 ML VIAL SQ SCH ×2 (09:34→20:40)
[2022-03-04] MEDS ORDERED: NEUTRA PHOS 1 POWD.PACKET GT ONE (10:00)
[2022-03-04] MEDS ORDERED: POTASSIUM PHOSPHATE MM 15 MMOL in IV NS 0.9% 250 ML IV SCH (11:00)
[2022-03-04] MEDS: IV NS 0.9% 1,000 ML IV PRN (11:16)
[2022-03-04 12:00] VITALS: BP 139/77
[2022-03-04] MEDS: ACETAMINOPHEN 325 MG TABLET PO PRN (14:34)
[2022-03-04 16:00] VITALS: BP 131/70
--- NOTE | 2022-03-04 18:33 | NUR ---
RN CLOSING NOTES: PATIENT REMAINS IN BED. A/O x1, ON O2 AT 3L/MIN VIA NASAL CANNULA, TOLERATING WELL. NO SOB NOTED. NOT IN ANY SIGN OF RESPIRATORY DISTRESS. ON CARDIAC TELE MONITOR WITH CURRENT READING SINUS RHYTHM WITH PVCS. IV ACCESS ON RE MIDLINE INTACT AND PATENT WITH NS INFUSING AT 75ML/HR. NG TUBE IN PLACE WITH JEVITY 1.2 FEEDING RUNNING AT 60ML/HR. KEPT HEAD OF BED ELEVATED. WITH SHANKAR CATHETER DRAINING TO GRAVITY WITH YELLOWISH COLORED URINE. SAFETY PRECAUTIONS IN PLACE, BED IN LOWEST AND LOCKED POSITION, BED ALARM ON, SIDE RAILS UP, AND CALL LIGHT WITHIN REACH. ALL DUE MEDICATIONS GIVEN, KEPT CLEAN AND DRY THROUGHOUT SHIFT. WILL ENDORSE TO NIGHTSHIFT RN FOR CONTINUATION OF CARE.
--- NOTE | 2022-03-04 19:35 | NUR ---
FORK LIFT TECHNICIAN OPENING NOTE RECEIVED PATIENT AWAKE IN BED. A/O x1. ON O2 @ 3LPM VIA NC. NO SOB OR S/S OF RESPIRATORY DISTRESS. BREATHING EVEN AND UNLABORED. ON EXTERNAL BOBBIN FIXER READING SR WITH PVCS. IV ACCESS RE MIDLINE, INTACT AND PATENT, RUNNING NS @ 75ML/HR. NG TUBE IN PLACE WITH JEVITY 1.2 FEEDING RUNNING AT 60ML/HR. WITH SHANKAR CATHETER DRAINING TO GRAVITY WITH YELLOWISH COLORED URINE. SAFETY PRECAUTIONS IN PLACE. BED IN LOWEST LOCKED POSITION, HOB ELEVATED, BED ALARM ON, SIDE RAILS UP X3, AND CALL LIGHT AND TABLE WITHIN REACH. ALL NEEDS MET AT THIS TIME.
[2022-03-04] MEDS: VANCOMYCIN 1 GM in IV D5W 250 ML IV SCH (19:50)
[2022-03-04 20:00] VITALS: BP 144/54
[2022-03-04] MEDS: PIPERACILLIN /TAZOBACTAM 3.375 G in IV D5W 100 ML IV SCH (20:40)
[2022-03-05] VITALS: BP 150/82
[2022-03-05 04:00] VITALS: BP 123/61
[2022-03-05] MEDS: BLOOD SUGAR DIAGNOSTIC 1 EACH STRIP IN SCH ×3 (05:40→17:37)
--- NOTE | 2022-03-05 06:34 | NUR ---
COAL DUMPING EQUIPMENT OPERATOR CLOSING NOTE PATIENT AWAKE IN BED. A/O x1. ON O2 @ 3LPM VIA NC. NO SOB OR S/S OF RESPIRATORY DISTRESS. BREATHING EVEN AND UNLABORED. ON EXTERNAL ORDER DESK CALLER READING SR 86 BPM. IV ACCESS RE MIDLINE, INTACT AND PATENT, RUNNING NS @ 75ML/HR. NG TUBE IN PLACE RUNNING JEVITY 1.2 @ 60ML/HR. WITH SHANKAR CATHETER DRAINING TO GRAVITY WITH YELLOWISH COLORED URINE, DRAINED 575 ML THIS SHIFT. WITH BILATERAL SOFT WRIST RESTRAINTS, RELEASED Q2H AND CIRCULATION CHECKED. TURNED AND REPOSITIONED Q2H. WOUND CARE DONE ORDERED. KEPT CLEAN AND DRY. ALL DUE MED GIVEN ORDERED. SAFETY PRECAUTIONS IN PLACE AT ALL TIMES. BED IN LOWEST LOCKED POSITION, HOB ELEVATED, BED ALARM ON, SIDE RAILS UP X3, AND CALL LIGHT AND TABLE WITHIN REACH. ALL NEEDS MET AT THIS TIME AND WILL ENDORSE TO ONCOMING NURSE FOR MATT.
[2022-03-05 06:45] LABS: BASOPHILS % (AUTO) 0.1 % (0.0-2.0); EOSINOPHILS % (AUTO) 1.3 % (0.0-6.0); HEMATOCRIT 23 % (39-51); HEMOGLOBIN 7.6 g/dL (13.5-17.5); LYMPHOCYTES # (AUTO) 1.1 K/uL (0.8-4.8); LYMPHOCYTES % (AUTO) 10.4 % (20.0-44.0); MEAN CORPUSCULAR HGB CONC 33 g/dl (31.0-36.0); MEAN CORPUSCULAR VOLUME 82 fL (80-96); MONOCYTES # (AUTO) 0.8 K/uL (0.1-1.30); MONOCYTES % (AUTO) 7.4 % (2.0-12.0); NEUTROPHILS # (AUTO) 8.7 K/uL (1.8-8.9); NEUTROPHILS % (AUTO) 80.8 % (43.0-81.0); PLATELET COUNT (AUTO) 303 K/uL (150-450); RED BLOOD CELL COUNT(AUTO) 2.82 MIL/uL (4.5-6.0); WHITE BLOOD COUNT (AUTO) 10.8 K/uL (4.3-11.0)
[2022-03-05 06:58] LABS: CREATININE 1.2 mg/dL (0.6-1.3); MAGNESIUM 1.7 mg/dL (1.8-2.4); PHOSPHORUS 2.8 mg/dL (2.5-4.9); POTASSIUM 4.2 mmol/L (3.5-5.1)
--- NOTE | 2022-03-05 07:21 | NUR ---
RESOURCE DEVELOPMENT DIRECTOR OPENING NOTE RECEIVED PATIENT AWAKE IN BED. A/O x1. ON O2 @ 3LPM VIA NC. NO SOB OR S/S OF RESPIRATORY DISTRESS. BREATHING EVEN AND UNLABORED. ON EXTERNAL ROAD DESIGN ENGINEER. IV ACCESS RE MIDLINE, INTACT AND PATENT, RUNNING NS @ 75ML/HR. NG TUBE IN PLACE WITH JEVITY 1.2 FEEDING RUNNING AT 60ML/HR. WITH SHANKAR CATHETER DRAINING TO GRAVITY WITH YELLOWISH COLORED URINE. SAFETY PRECAUTIONS IN PLACE. BED IN LOWEST LOCKED POSITION, HOB ELEVATED, BED ALARM ON, SIDE RAILS UP X3, AND CALL LIGHT AND TABLE WITHIN REACH.
[2022-03-05 08:05] VITALS: BP 145/58
[2022-03-05] MEDS: PANTOPRAZOLE 40 MG/PACK PACK GT SCH (08:12)
[2022-03-05] MEDS: PIPERACILLIN /TAZOBACTAM 3.375 G in IV D5W 100 ML IV SCH ×2 (08:12→21:06)
[2022-03-05] MEDS: HEPARIN SODIUM, PORCINE 5000 UNITS/1 ML VIAL SQ SCH ×2 (08:13→21:07)
[2022-03-05] MEDS: Magnesium 1GM/D5W 100ML PREMIX 100 ML IV SCH ×2 (10:57→11:59)
[2022-03-05] MEDS: INSULIN REGULAR, HUMAN 100 UNIT/ML 3 ML VIAL SQ PRN ×2 (11:38→17:37)
[2022-03-05 12:05] VITALS: BP 138/68
[2022-03-05 16:00] VITALS: BP 135/76
[2022-03-05] MEDS: IV NS 0.9% 1,000 ML IV PRN (16:43)
[2022-03-05] MEDS: JEVITY 1.2 CAL 1,000 ML BOTTLE GT SCH (16:50)
--- NOTE | 2022-03-05 18:42 | NUR ---
WINDOW MAKER CLOSING NOTE PATIENT AWAKE IN BED. A/O x1. ON O2 @ 3LPM VIA NC. NO SOB OR S/S OF RESPIRATORY DISTRESS. BREATHING EVEN AND UNLABORED. ON EXTERNAL BOTTLING SUPERVISOR. IV ACCESS RE MIDLINE, INTACT AND PATENT, RUNNING NS @ 75ML/HR. NG TUBE IN PLACE RUNNING JEVITY 1.2 @ 60ML/HR. WITH SHANKAR CATHETER DRAINING TO GRAVITY WITH YELLOWISH COLORED URINE. WITH BILATERAL SOFT WRIST RESTRAINTS, RELEASED Q2H AND CIRCULATION CHECKED. TURNED AND REPOSITIONED Q2H. WOUND CARE DONE ORDERED. KEPT CLEAN AND DRY. ALL DUE MED GIVEN ORDERED. SAFETY PRECAUTIONS IN PLACE AT ALL TIMES. BED IN LOWEST LOCKED POSITION, HOB ELEVATED, BED ALARM ON, SIDE RAILS UP X3, AND CALL LIGHT AND TABLE WITHIN REACH. ALL NEEDS MET AT THIS TIME AND WILL ENDORSE TO ONCOMING NURSE FOR MATT.
--- NOTE | 2022-03-05 19:13 | NUR ---
GAS STATION ATTENDANT OPENING NOTE PATIENT AWAKE IN BED. A/O x1. ON O2 @ 3LPM VIA NC. NO SOB OR S/S OF RESPIRATORY DISTRESS. BREATHING EVEN AND UNLABORED. ON EXTERNAL TEXTILE STYLIST. IV ACCESS RE MIDLINE, INTACT AND PATENT, RUNNING NS @ 75ML/HR. NG TUBE IN PLACE RUNNING JEVITY 1.2 @ 60ML/HR. WITH SHANKAR CATHETER DRAINING TO GRAVITY WITH YELLOWISH COLORED URINE. WITH BILATERAL SOFT WRIST RESTRAINTS, RELEASED Q2H AND CIRCULATION CHECKED. TURNED AND REPOSITIONED Q2H. WOUND CARE DONE ORDERED. KEPT CLEAN AND DRY.SAFETY PRECAUTIONS IN PLACE AT ALL TIMES. BED IN LOWEST LOCKED POSITION, HOB ELEVATED, BED ALARM ON, SIDE RAILS UP X3, AND CALL LIGHT AND TABLE WITHIN REACH. ALL NEEDS MET AT THIS TIME WILL CONTINUE TO MONITOR.
[2022-03-05 20:00] VITALS: BP 144/54
[2022-03-05] MEDS: VANCOMYCIN 1 GM in IV D5W 250 ML IV SCH (20:04)
--- NOTE | 2022-03-05 20:30 | NUR ---
BLOW MOLDING MACHINE TENDER NOTES CHANGE OF CARE TO JUAN JONES
--- NOTE | 2022-03-05 20:31 | NUR ---
MS RN NOTE RECEIVED REPORT FROM MILA FOR MATT, PT REMAINS ON BED A/O X1, ON NC AT 3LPM, IV ACCESS ON RE ML NS AT 75 ML/HR. NO S/SX OF DISCOMFORT AND RESPIRATORY RESTRAINTS. WITH B SOFT WRIST RESTRAINT IN PLACED, CALL LIGHT WITHIN REACH, BED IN LOWEST AND LOCKED POSITION, WILL CONTINUE TO MONITOR.
--- NOTE | 2022-03-05 23:53 | NUR ---
RN NOTE BS CHECKED AT 98 MG/DL, NO COVERAGE GIVEN.
[2022-03-06] VITALS: BP 144/54
[2022-03-06] MEDS: BLOOD SUGAR DIAGNOSTIC 1 EACH STRIP IN SCH ×4 (01:12→17:45)
[2022-03-06 04:00] VITALS: BP 107/61
--- NOTE | 2022-03-06 05:15 | NUR ---
RN NOTE BS CHECKED AT 112 MG/DL, NO COVERAGE GIVEN.
[2022-03-06] MEDS: IV NS 0.9% 1,000 ML IV PRN ×2 (05:43→20:12)
--- NOTE | 2022-03-06 06:30 | NUR ---
MS RN CLOSING NOTE PATIENT AWAKE IN BED. A/O x1. ON O2 @ 3LPM VIA NC. NO SOB OR S/S OF RESPIRATORY DISTRESS. BREATHING EVEN AND UNLABORED. ON EXTERNAL SPECIAL DELIVERY MESSENGER. IV ACCESS RE MIDLINE, INTACT AND PATENT, RUNNING NS @ 75ML/HR. NG TUBE IN PLACE RUNNING JEVITY 1.2 @ 60ML/HR. WITH SHANKAR CATHETER DRAINING TO GRAVITY WITH YELLOWISH COLORED URINE. WITH BILATERAL SOFT WRIST RESTRAINTS, RELEASED Q2H AND CIRCULATION CHECKED. TURNED AND REPOSITIONED Q2H. WOUND CARE DONE ORDERED. KEPT CLEAN AND DRY. ALL DUE MED GIVEN ORDERED. SAFETY PRECAUTIONS IN PLACE. BED IN LOWEST LOCKED POSITION, HOB ELEVATED, BED ALARM ON, SIDE RAILS UP X3, AND CALL LIGHT AND TABLE WITHIN REACH. WILL ENDORSE TO AM SHIFT NURSE.
[2022-03-06 06:36] LABS: BASOPHILS % (AUTO) 0.2 % (0.0-2.0); EOSINOPHILS % (AUTO) 1.5 % (0.0-6.0); HEMATOCRIT 24 % (39-51); HEMOGLOBIN 7.9 g/dL (13.5-17.5); LYMPHOCYTES % (AUTO) 10.9 % (20.0-44.0); MEAN CORPUSCULAR HGB CONC 33 g/dl (31.0-36.0); MEAN CORPUSCULAR VOLUME 80 fL (80-96); MONOCYTES # (AUTO) 0.7 K/uL (0.1-1.30); MONOCYTES % (AUTO) 7.3 % (2.0-12.0); NEUTROPHILS # (AUTO) 7.7 K/uL (1.8-8.9); NEUTROPHILS % (AUTO) 80.1 % (43.0-81.0); PLATELET COUNT (AUTO) 295 K/uL (150-450); WHITE BLOOD COUNT (AUTO) 9.6 K/uL (4.3-11.0)
[2022-03-06 07:03] LABS: CALCIUM, SERUM 8.2 mg/dL (8.5-10.1); CREATININE 1.3 mg/dL (0.6-1.3); MAGNESIUM 2.2 mg/dL (1.8-2.4); PHOSPHORUS 3.5 mg/dL (2.5-4.9)
[2022-03-06 08:00] VITALS: BP 142/61
[2022-03-06] MEDS: PANTOPRAZOLE 40 MG/PACK PACK GT SCH ×2 (08:47→17:05)
[2022-03-06] MEDS: PIPERACILLIN /TAZOBACTAM 3.375 G in IV D5W 100 ML IV SCH ×2 (08:47→20:25)
[2022-03-06] MEDS: HEPARIN SODIUM, PORCINE 5000 UNITS/1 ML VIAL SQ SCH ×2 (08:49→20:54)
--- NOTE | 2022-03-06 09:00 | NUR ---
Received endorsement from nurse for continuity of care. Patient's ng tube checked and noted to be displaced. Tube removed.
--- NOTE | 2022-03-06 11:00 | NUR ---
Three attempts tried of ng tube re insertion with charge nurse and unsuccessful. Will try again later.
[2022-03-06] MEDS: INSULIN REGULAR, HUMAN 100 UNIT/ML 3 ML VIAL SQ PRN ×2 (12:18→17:45)
--- NOTE | 2022-03-06 15:43 | NUR ---
Ng tube re inserted to left nare and placement checked with a chest xray. Feedings restarted.
[2022-03-06 16:00] VITALS: BP 144/60
--- NOTE | 2022-03-06 19:38 | NUR ---
MS RN OPENING NOTES: RECEIVED PATIENT AWAKE IN BED, BED IN LOW POSITION CALL LIGHTS WITHIN REACH, NO COMPLAIN OF PAIN AND DISCOMFORT AT THIS TIME ON O2 INHALATION AT 2LPM SATURATING WELL, PATIENT WITH NGT WITH ONGOING JEVITY.1.2@60ML/HR INFUSING WELL, PATIENT WITH BILATERAL SOFT WRIST RESTRAIN , ON SHANKAR CATHETER, PATIENT KEPT CLEAN AND DRY ALL NEEDS MET, WILL CONTINUE TO MONITOR.
[2022-03-06 20:00] VITALS: BP 129/60
[2022-03-06] MEDS: VANCOMYCIN 1 GM in IV D5W 250 ML IV SCH (20:50)
--- NOTE | 2022-03-06 21:01 | NUR ---
RN NOTES: VANCOMYCIN IV NOT GIVEN/ HOLD, VANCO TROUGH=21
[2022-03-06 23:30] VITALS: BP 139/98
--- NOTE | 2022-03-07 00:48 | NUR ---
RN NOTES: BLOOD SUGAR- 119/ NO INSULIN GIVEN PER SLIDING SCALE
[2022-03-07] MEDS: JEVITY 1.2 CAL 1,000 ML BOTTLE GT SCH ×2 (00:49→22:00)
[2022-03-07 01:07] VITALS: BP 139/98
[2022-03-07 04:00] VITALS: BP 114/75
[2022-03-07] MEDS: BLOOD SUGAR DIAGNOSTIC 1 EACH STRIP IN SCH ×4 (06:00→17:54)
--- NOTE | 2022-03-07 06:20 | NUR ---
RN NOTES: BLOOD SUGAR-119/ NO INSULIN GIVEN PER SLIDING SCALE
--- NOTE | 2022-03-07 06:26 | NUR ---
MS RN CLOSING NOTES: PATIENT SLEEP IN BED COMFORTABLY, BED IN LOW POSITION CALL LIGHTS WITHIN REACH, NO COMPLAIN OF BED AND DISCOMFORT AT THIS TIME, ON O2 INHALATION AT 2LPM SATURATING WELL, WITH IV LINE AT RE ML @75ML/HR INFUSING WELL., ON NGT OF JEVITY 1.2@60ML/HR INFUSING WELL, PATIENT ON BILATERAL SOFT RESTRAIN, ON SHANKAR CATHETER-950CC URINE OUTPUT, KEPT CLEAN AND DRY ALL NEEDS MET ENDORSE TO INCOMING SHIFT.
[2022-03-07 06:46] LABS: BASOPHILS % (AUTO) 0.4 % (0.0-2.0); EOSINOPHILS % (AUTO) 0.5 % (0.0-6.0); HEMATOCRIT 23 % (39-51); HEMOGLOBIN 7.3 g/dL (13.5-17.5); LYMPHOCYTES # (AUTO) 0.9 K/uL (0.8-4.8); LYMPHOCYTES % (AUTO) 11.3 % (20.0-44.0); MEAN CORPUSCULAR HGB CONC 32 g/dl (31.0-36.0); MEAN CORPUSCULAR VOLUME 81 fL (80-96); MONOCYTES # (AUTO) 0.7 K/uL (0.1-1.30); MONOCYTES % (AUTO) 8.4 % (2.0-12.0); NEUTROPHILS # (AUTO) 6.4 K/uL (1.8-8.9); NEUTROPHILS % (AUTO) 79.4 % (43.0-81.0); PLATELET COUNT (AUTO) 261 K/uL (150-450); RED BLOOD CELL COUNT(AUTO) 2.81 MIL/uL (4.5-6.0); WHITE BLOOD COUNT (AUTO) 8.1 K/uL (4.3-11.0)
[2022-03-07 07:24] LABS: CREATININE 1.2 mg/dL (0.6-1.3); MAGNESIUM 1.9 mg/dL (1.8-2.4); PHOSPHORUS 3.7 mg/dL (2.5-4.9); POTASSIUM 4.1 mmol/L (3.5-5.1)
--- NOTE | 2022-03-07 07:31 | NUR ---
RN OPEN NOTE PATIENT IS AT BED , ALERT , ORIENTED BY PLACE , BED IN LOW POSITION CALL LIGHTS WITHIN REACH, NO COMPLAIN OF BED AND DISCOMFORT AT THIS TIME, ON O2 INHALATION AT 2LPM SATURATING WELL, WITH IV LINE AT RE ML @75ML/HR INFUSING WELL., ON NGT OF JEVITY 1.2@60ML/HR INFUSING WELL, PATIENT ON BILATERAL SOFT RESTRAIN, ON SHANKAR CATHETER DARNING CLEAR YELLOW URINE WILL CONTINUE TO FALLOW POC
[2022-03-07] MEDS: PANTOPRAZOLE 40 MG/PACK PACK GT SCH (08:51)
[2022-03-07] MEDS: HEPARIN SODIUM, PORCINE 5000 UNITS/1 ML VIAL SQ SCH ×2 (08:52→20:59)
[2022-03-07] MEDS: PIPERACILLIN /TAZOBACTAM 3.375 G in IV D5W 100 ML IV SCH ×2 (08:53→21:47)
[2022-03-07] MEDS: INSULIN REGULAR, HUMAN 100 UNIT/ML 3 ML VIAL SQ PRN (11:26)
[2022-03-07] MEDS: IV NS 0.9% 1,000 ML IV PRN (11:38)
[2022-03-07 12:00] VITALS: BP 120/75
[2022-03-07] MEDS: LACTULOSE 10 G/15 ML UDC (PYXIS) GT SCH ×2 (12:55→21:54)
[2022-03-07] MEDS ORDERED: MAGNESIUM CITRATE 296 ML BOTTLE PO ONE (13:00)
--- NOTE | 2022-03-07 18:55 | NUR ---
RN CLOSING NOTE PATIENT AWAKE IN BED. A/O x1. ON O2 @ 3LPM VIA NC. NO SOB OR S/S OF RESPIRATORY DISTRESS. BREATHING EVEN AND UNLABORED. ON EXTERNAL MERCHANDISING CONSULTANT. IV ACCESS RE MIDLINE, INTACT AND PATENT, RUNNING NS @ 75ML/HR. NG TUBE IN PLACE RUNNING JEVITY 1.2 @ 60ML/HR. WITH SHANKAR CATHETER DRAINING TO GRAVITY WITH YELLOWISH COLORED URINE. WITH BILATERAL SOFT WRIST RESTRAINTS, RELEASED Q2H AND CIRCULATION CHECKED. TURNED AND REPOSITIONED Q2H. WOUND CARE DONE ORDERED. KEPT CLEAN AND DRY. ALL DUE MED GIVEN ORDERED. SAFETY PRECAUTIONS IN PLACE. BED IN LOWEST LOCKED POSITION, HOB ELEVATED, BED ALARM ON, SIDE RAILS UP X3, AND CALL LIGHT AND TABLE WITHIN REACH. WILL ENDORSE TO PM SHIFT NURSE.
[2022-03-07] MEDS: VANCOMYCIN 0.75 GM in IV D5W 250 ML IV SCH (20:10)
--- NOTE | 2022-03-07 20:12 | NUR ---
NOTED NG TUBE SLID OUT, FEEDING TURNED OFF, PUSHED BACK TUBE, NOTIFIED BAND DIRECTOR HERMINIA COURTNEY, NEW ORDER OF CHEST XRAY TO CHECK FOR PLACEMENT.
[2022-03-07 21:42] VITALS: BP 155/62
[2022-03-07] MEDS: ACETAMINOPHEN 325 MG TABLET PO PRN (21:54)
--- NOTE | 2022-03-07 22:00 | NUR ---
FIRST CHEST XRAY SHOWED NEED TO ADVANCE CATHETER 3 CM. ADVANCE TIP OF NG TUBE 3 CM, ORDERED ANOTHER CHEST XRAY, THIS TIME IT SHOWED SATISFACTORY PLACEMENT. STARTED NG TUBE FEEDING JEVITY 1.2 AT 60 ML/HR. LUNGS ARE DIMINISHED, NO DISTRESS.
[2022-03-08] MEDS: INSULIN REGULAR, HUMAN 100 UNIT/ML 3 ML VIAL SQ PRN ×4 (00:24→17:08)
[2022-03-08] MEDS: BLOOD SUGAR DIAGNOSTIC 1 EACH STRIP IN SCH ×4 (00:30→17:08)
[2022-03-08 04:00] VITALS: BP 149/75
[2022-03-08 06:39] LABS: BASOPHILS % (AUTO) 0.1 % (0.0-2.0); EOSINOPHILS % (AUTO) 0.2 % (0.0-6.0); HEMATOCRIT 24 % (39-51); HEMOGLOBIN 7.4 g/dL (13.5-17.5); LYMPHOCYTES % (AUTO) 9.8 % (20.0-44.0); MEAN CORPUSCULAR HGB CONC 32 g/dl (31.0-36.0); MEAN CORPUSCULAR VOLUME 82 fL (80-96); MONOCYTES # (AUTO) 0.7 K/uL (0.1-1.30); NEUTROPHILS # (AUTO) 8.7 K/uL (1.8-8.9); NEUTROPHILS % (AUTO) 82.9 % (43.0-81.0); PLATELET COUNT (AUTO) 255 K/uL (150-450); RED BLOOD CELL COUNT(AUTO) 2.86 MIL/uL (4.5-6.0); WHITE BLOOD COUNT (AUTO) 10.5 K/uL (4.3-11.0)
[2022-03-08 06:50] LABS: CALCIUM, SERUM 8.3 mg/dL (8.5-10.1); CARBON DIOXIDE 24 mmol/L (21-32); CHLORIDE 113 mmol/L (98-107); CREATININE 1.4 mg/dL (0.6-1.3); GLUCOSE 133 mg/dL (74-106); MAGNESIUM 2.2 mg/dL (1.8-2.4); PHOSPHORUS 3.7 mg/dL (2.5-4.9); POTASSIUM 4.1 mmol/L (3.5-5.1); SODIUM SERUM 144 mmol/L (136-145); UREA NITROGEN, BLOOD 18 mg/dL (7-18)
[2022-03-08 06:53] LABS: TOTAL IRON BINDING CAPACITY 56 ug/dl (250-450)
--- NOTE | 2022-03-08 07:00 | NUR ---
NOTED WITH RIGHT HAND SKIN TEAR, INITIAL WOUND CARE PERFORMED, CHANGED RESTRAINTS TO MITTENS.
[2022-03-08 07:01] LABS: FERRITIN 594 ng/mL (8-388)
--- NOTE | 2022-03-08 07:05 | NUR ---
RIGHT HAND SKIN TEAR PHOTO TAKEN, UNABLE TO PRINT PHOTO DUE TO CAMERA MALFUNCTION, RIGHT HAND SECURED WITH MITTEN
[2022-03-08 07:10] LABS: IRON, SERUM 8 ug/dl (50-175)
--- NOTE | 2022-03-08 07:30 | NUR ---
RN OPENING NOTE PATIENT IS AT BED , ALERT , ORIENTED BY PLACE , BED IN LOW POSITION CALL LIGHTS WITHIN REACH, NO COMPLAIN OF BED AND DISCOMFORT AT THIS TIME, ON O2 INHALATION AT 2LPM SATURATING WELL, WITH IV LINE AT RE ML @75ML/HR INFUSING WELL., ON NGT OF JEVITY 1.2@60ML/HR INFUSING WELL, PATIENT ON BILATERAL SOFT RESTRAIN, ON SHANKAR CATHETER DARNING CLEAR YELLOW URINE. SAFETY MEASURES IN PLACE.
[2022-03-08 08:00] VITALS: BP 117/54
[2022-03-08] MEDS: LACTULOSE 10 G/15 ML UDC (PYXIS) GT SCH ×2 (08:20→20:54)
[2022-03-08] MEDS: PANTOPRAZOLE 40 MG/PACK PACK GT SCH (08:20)
[2022-03-08] MEDS: PIPERACILLIN /TAZOBACTAM 3.375 G in IV D5W 100 ML IV SCH ×2 (08:21→20:54)
[2022-03-08] MEDS: HEPARIN SODIUM, PORCINE 5000 UNITS/1 ML VIAL SQ SCH (08:33)
[2022-03-08] MEDS: IV NS 0.9% 1,000 ML IV PRN (14:17)
[2022-03-08 15:00] VITALS: BP 137/51
[2022-03-08 16:05] VITALS: BP 137/51
[2022-03-08] MEDS: JEVITY 1.2 CAL 1,000 ML BOTTLE GT SCH (17:38)
--- NOTE | 2022-03-08 18:42 | NUR ---
RN CLOSING NOTE PATIENT RESTINGIN BED. A/O x1. ON O2 @ 3LPM VIA NC. NO SOB OR S/S OF RESPIRATORY DISTRESS. BREATHING EVEN AND UNLABORED. ON EXTERNAL STUDENT SERVICES COORDINATOR. IV ACCESS RE MIDLINE, INTACT AND PATENT, RUNNING NS @ 75ML/HR. NG TUBE IN PLACE RUNNING JEVITY 1.2 @ 60ML/HR. WITH SHANKAR CATHETER DRAINING TO GRAVITY WITH YELLOWISH COLORED URINE. WITH BILATERAL SOFT WRIST RESTRAINTS, RELEASED Q2H AND CIRCULATION CHECKED. TURNED AND REPOSITIONED Q2H. WOUND CARE DONE ORDERED. KEPT CLEAN AND DRY. ALL DUE MED GIVEN ORDERED. SAFETY PRECAUTIONS IN PLACE. BED IN LOWEST LOCKED POSITION, HOB ELEVATED, BED ALARM ON, SIDE RAILS UP X3, AND CALL LIGHT AND TABLE WITHIN REACH. WILL ENDORSE TO PM SHIFT NURSE.
--- NOTE | 2022-03-08 19:17 | NUR ---
RN OPENING NOTES RECEIVED PT IN BED, ASLEEP, AWAKENS TO TACTILE STIMULI. AOx1, OBTUNDED. ON NC 3LPM AND TOLERATING WELL. NO SOB NOTED. NO S/SX OF RESPIRATORY DISTRESS NOTED. IV ACCESS IN RE MIDLINE RUNNING NS @ 75 ML/HR. NG TUBE IN L NARE RUNNING JEVITY 1.2 @ 60 ML/HR. SAFETY PRECAUTIONS IN PLACE: BED IN LOWEST, LOCKED POSITION, SIDERAILS UPx2, AND BRAKES ON. TABLE AND CALL LIGHT WITHIN REACH. WILL CONTINUE TO MONITOR.
[2022-03-08] MEDS: VANCOMYCIN 0.75 GM in IV D5W 250 ML IV SCH (19:37)
[2022-03-09] VITALS: BP 111/80
[2022-03-09] MEDS: BLOOD SUGAR DIAGNOSTIC 1 EACH STRIP IN SCH ×4 (01:00→17:51)
[2022-03-09] MEDS: INSULIN REGULAR, HUMAN 100 UNIT/ML 3 ML VIAL SQ PRN ×2 (01:00→05:47)
[2022-03-09] MEDS: IV NS 0.9% 1,000 ML IV PRN (05:39)
[2022-03-09 07:01] LABS: CARBON DIOXIDE 25 mmol/L (21-32); CHLORIDE 113 mmol/L (98-107); CREATININE 1.3 mg/dL (0.6-1.3); GLUCOSE 132 mg/dL (74-106); SODIUM SERUM 144 mmol/L (136-145); UREA NITROGEN, BLOOD 20 mg/dL (7-18)
--- NOTE | 2022-03-09 07:49 | NUR ---
RN CLOSING NOTES REPORT GIVEN TO DAYSHIFT RN. PT STABLE. NO DISTRESS NOTED.
[2022-03-09 08:00] VITALS: BP 152/95
--- NOTE | 2022-03-09 08:18 | NUR ---
RN OPEN NOTE PATIENT IS ALERT , NONVERBAL , CONFUSED HAS SOFT RESTRAINED BILATERALLY UPPER EXTREMITIES , WILL RELEASED Q2H AND CHECK THE CIRCULATION WILL TURN AND REPOSITION THE PATIENT Q2H ,ON O2 @ 3LPM VIA NC. NO SOB OR S/S OF RESPIRATORY DISTRESS. BREATHING EVEN AND UNLABORED. ON EXTERNAL PEST MANAGEMENT SUPERVISOR. IV ACCESS RE MIDLINE, INTACT AND PATENT, RUNNING NS @ 75ML/HR. NG TUBE IN PLACE RUNNING JEVITY 1.2 @ 60ML/HR. WITH SHANKAR CATHETER DRAINING TO GRAVITY WITH YELLOWISH COLORED URINE. , RELEASED Q2H AND CIRCULATION CHECKED. TURNED AND REPOSITIONED Q2H. WOUND CARE DONE ORDERED. KEPT CLEAN AND DRY. ALL DUE MED GIVEN ORDERED. SAFETY PRECAUTIONS IN PLACE. BED IN LOWEST LOCKED POSITION, HOB ELEVATED, BED ALARM ON, SIDE RAILS UP X3, AND CALL LIGHT AND TABLE WITHIN REACH. WILL CONTINUE TO MONITOR AND FALLOW THE PLAN OF CARE
[2022-03-09] MEDS: LACTULOSE 10 G/15 ML UDC (PYXIS) GT SCH ×2 (09:39→21:47)
[2022-03-09] MEDS: PIPERACILLIN /TAZOBACTAM 3.375 G in IV D5W 100 ML IV SCH ×2 (09:40→21:47)
[2022-03-09] MEDS: PANTOPRAZOLE 40 MG/PACK PACK GT SCH (09:42)
[2022-03-09 16:11] VITALS: BP 128/60
--- NOTE | 2022-03-09 18:34 | NUR ---
RN CLOSING NOTE PATIENT IS IN BED. A/O x1. ON O2 VIA N/C @ 3LPM . NO SOB OR S/S OF RESPIRATORY DISTRESS. BREATHING UNLABORED. IV ACCESS RE MIDLINE, INTACT AND PATENT, RUNNING NS @ 75ML/HR. NG TUBE IN PLACE RUNNING JEVITY 1.2 @ 60ML/HR. WITH SHANKAR CATHETER DRAINING TO GRAVITY WITH YELLOWISH COLORED URINE. WITH BILATERAL SOFT WRIST RESTRAINTS, RELEASED Q2H AND CIRCULATION CHECKED. TURNED AND REPOSITIONED Q2H. WOUND CARE DONE ORDERED. KEPT CLEAN AND DRY. ALL MEDICATIONS WERE ADMINISTERED BED IN LOWEST POSITION HOB ELEVATED, BED ALARM ON, SIDE RAILS UP X3, AND CALL LIGHT AND TABLE WITHIN REACH. WILL ENDORSE TO PM SHIFT NURSE.
[2022-03-09] MEDS: ACETAMINOPHEN 325 MG TABLET PO PRN (21:47)
--- NOTE | 2022-03-09 21:49 | NUR ---
RT PT ASLEEP AND RESTING COMFORTABLY ON 3L NC. SPO2 98%. NO RESP DISTRESS OR SOB NOTED. Addendum: 03/09/22 at 2150 by Aldo Bauman RT Amended: Links added.
[2022-03-10] VITALS (7 sets, daily range): BP systolic 110–145; BP diastolic 31–65
--- NOTE | 2022-03-10 07:30 | NUR ---
SUBCONTRACT ADMINISTRATOR OPENING NOTE PATIENT IS ALERT AND NONVERBAL. PATIENT IS CONFUSED AND HAS SOFT RESTRAINTS ON BILATERAL UPPER EXTREMITIES.WILL REASSESS AND RELEASE CIRCULATION EVERY 2 HOURS. PATIENT HAS SACRAL WOUND.PATIENT HAS NG TUBE IN LEFT NARES. PATIENT HAS JEVITY 1.2 @ 60 ML/HR. PATIENT HAS RIGHT UPPER MIDLINE. NORMAL SALINE RUNNING AT 75 ML/HR.ALL SAFETY MEASURES IN PLACE. CALL LIGHT WITHIN REACH. BED LOCKED IN LOWEST POSITION. WILL CONTINUE TO ASSESS THROUGHOUT SHIFT.
--- NOTE | 2022-03-10 07:32 | NUR ---
RN CLOSING NOTE PATIENT STABLE REPORT GIVEN TO DAY NURSE ALL QUESTIONS ANSWERED.
[2022-03-10 08:33] LABS: CALCIUM, SERUM 8.4 mg/dL (8.5-10.1); CREATININE 1.2 mg/dL (0.6-1.3); POTASSIUM 4.1 mmol/L (3.5-5.1)
[2022-03-10] MEDS: PANTOPRAZOLE 40 MG/PACK PACK GT SCH (09:24)
[2022-03-10] MEDS: LACTULOSE 10 G/15 ML UDC (PYXIS) GT SCH ×2 (09:24→20:38)
[2022-03-10] MEDS: PIPERACILLIN /TAZOBACTAM 3.375 G in IV D5W 100 ML IV SCH ×3 (09:24→20:38)
--- NOTE | 2022-03-10 10:04 | NUR ---
PATIENT ON 3 L NC NOT REALLY AWAKE. PATIENT IS STABLE W/O DISTRESS NOTED Addendum: 03/10/22 at 1005 by HUMPHREY ALBARRAN RT Amended: Links added.
[2022-03-10 11:58] LABS: BASOPHILS % (AUTO) 0.1 % (0.0-2.0); EOSINOPHILS % (AUTO) 2.3 % (0.0-6.0); HEMATOCRIT 22 % (39-51); MEAN CORPUSCULAR HGB CONC 31 g/dl (31.0-36.0); MEAN CORPUSCULAR VOLUME 83 fL (80-96); MONOCYTES # (AUTO) 0.6 K/uL (0.1-1.30); MONOCYTES % (AUTO) 6.7 % (2.0-12.0); NEUTROPHILS # (AUTO) 7.2 K/uL (1.8-8.9); NEUTROPHILS % (AUTO) 79.9 % (43.0-81.0); PLATELET COUNT (AUTO) 256 K/uL (150-450); RED BLOOD CELL COUNT(AUTO) 2.63 MIL/uL (4.5-6.0)
[2022-03-10 12:16] LABS: HEMOGLOBIN 6.8 g/dL (13.5-17.5)
--- NOTE | 2022-03-10 12:36 | NUR ---
blood sugar 1200 is 113 no coverage
[2022-03-10] MEDS: BLOOD SUGAR DIAGNOSTIC 1 EACH STRIP IN SCH ×3 (12:52→18:08)
--- NOTE | 2022-03-10 13:58 | NUR ---
critical lab hgb 6.[address] walls that hgb is 6.8. transfuse 1 unit of blood
--- NOTE | 2022-03-10 16:41 | NUR ---
received telephone consent for blood transfusion from Camille leon . she agreed for blood transfusion Addendum: 03/10/22 at 1933 by KIERAN VAUGHAN RN provided update patient's stepdaughter
--- NOTE | 2022-03-10 18:51 | NUR ---
CRIMINAL LEGAL ASSISTANT CLOSING NOTE PATIENT IS ALERT AND NONVERBAL. PATIENT IS CONFUSED AND HAS SOFT RESTRAINTS ON BILATERAL UPPER EXTREMITIES.WILL REASSESS AND RELEASE CIRCULATION EVERY 2 HOURS. PATIENT HAS SACRAL WOUND.PATIENT HAS REDNESS IN SACRAL. KEPT CLEAN AND DRY. PATIENT HAS NG TUBE IN LEFT NARES. NG TUBE PATENT AND FLUSHES WELL. PATIENT HAS JEVITY 1.2 RUNNING @ 60 ML/HR. PATIENT HAS RIGHT UPPER MIDLINE. NORMAL SALINE RUNNING AT 75 ML/HR.ALL SAFETY MEASURES IN PLACE. CALL LIGHT WITHIN REACH. BED LOCKED IN LOWEST POSITION. SIDE RAILS UP X2
--- NOTE | 2022-03-10 19:48 | NUR ---
MS RN OPENING NOTES: RECEIVED PT AWAKE IN BED. A/O x1, REORIENTED PT NEEDED. ON O2 AT 3L/MIN VIA NASAL CANNULA, TOLERATING WELL. NO SOB NOTED. NOT IN ANY SIGN OF RESPIRATORY DISTRESS. IV ACCESS ON RE MIDLINE INTACT AND PATENT WITH NS INFUSING AT 75ML/HR. NG TUBE IN PLACE WITH JEVITY 1.2 FEEDING RUNNING AT 60ML/HR. KEPT HEAD OF BED ELEVATED. SAFETY PRECAUTIONS IN PLACE, NOTED WITH B SOFT WRIST RESTRAINTS. BED IN LOWEST AND LOCKED POSITION, BED ALARM ON, SIDE RAILS UP, AND CALL LIGHT WITHIN REACH. NOTED WITH HGB AT 6.8, AWAITING TO TRANSFUSE 1PRBC. WILL CONTINUE TO MONITOR THROUGHOUT THE SHIFT.
[2022-03-10] MEDS ORDERED: SILVER NITRATE APPLICATOR 1 EA BOX TP PRN (20:30)
[2022-03-10] MEDS: THERAHONEY GEL 1.5 OZ TUBE TP SCH (20:30)
[2022-03-10] MEDS ORDERED: LIDOCAINE 1%-EPI 1:100,000 20 ML VIAL TP ONE (20:30)
--- NOTE | 2022-03-10 22:00 | NUR ---
RN NOTE 1PRBC BLOOD TRANSFUSION STARTED. V/S TAKEN AND RECORDED. WILL CONT TO MONITOR.
[2022-03-11] VITALS: BP 137/64
--- NOTE | 2022-03-11 | NUR ---
RN NOTE BS CHECKED AT 108 MG/DL, NO COVERAGE GIVEN.
[2022-03-11 01:00] VITALS: BP 135/63
--- NOTE | 2022-03-11 01:15 | NUR ---
RN NOTE BLOOD TRANSFUSION DONE, PATIENT TOLERATED WELL, NO S/SX OF ANY ADVERSE REACTION, V/S TAKEN AT 135/63, 98.5, 82, RR 19, SATING 98%. WILL CONT TO MONITOR.
[2022-03-11] MEDS: BLOOD SUGAR DIAGNOSTIC 1 EACH STRIP IN SCH ×4 (02:03→18:28)
[2022-03-11] MEDS: IV NS 0.9% 1,000 ML IV PRN ×2 (03:00→17:32)
[2022-03-11] MEDS: JEVITY 1.2 CAL 1,000 ML BOTTLE GT SCH (03:00)
--- NOTE | 2022-03-11 05:00 | NUR ---
RN NOTE DAUGHTER ELMO CALLED ASKING FOR UPDATES ABOUT THE PATIENT. REPORTED ABOUT PT CONDITION AND HE WAS ABLE TO RECEIVE 1 PRBC, TOLERATED WELL.
--- NOTE | 2022-03-11 06:00 | NUR ---
RN NOTE BS CHECKED AT 99 MG/DL, NO COVERAGE GIVEN PER SLIDING SCALE.
--- NOTE | 2022-03-11 06:40 | NUR ---
MS RN CLOSING NOTES PT SLEEPING IN BED BUT EASILY AROUSABLE TO TOUCH AND VOICE. A/O x1, REORIENTED PT NEEDED. ON O2 AT 3L/MIN VIA NASAL CANNULA, TOLERATING WELL. NO SOB NOTED. NOT IN ANY SIGN OF RESPIRATORY DISTRESS. IV ACCESS ON L HAND #22G AND WINDY MIDLINE INTACT AND PATENT WITH NS INFUSING AT 75ML/HR. NG TUBE IN PLACE WITH JEVITY 1.2 FEEDING RUNNING AT 60ML/HR. KEPT HEAD OF BED ELEVATED. ALL DUE MEDS GIVEN, KEPT DRY AND CLEAN, SAFETY PRECAUTIONS IN PLACE, BED IN LOWEST AND LOCKED POSITION, BED ALARM ON, SIDE RAILS UP, AND CALL LIGHT WITHIN REACH. S/P 1 PRBC TRANSFUSION. TOLERATED WELL. WILL ENDORSE TO AM SHIFT NURSE.
[2022-03-11 06:56] LABS: BASOPHILS % (AUTO) 0.2 % (0.0-2.0); EOSINOPHILS % (AUTO) 2.1 % (0.0-6.0); HEMATOCRIT 26 % (39-51); HEMOGLOBIN 8.4 g/dL (13.5-17.5); LYMPHOCYTES % (AUTO) 10.7 % (20.0-44.0); MEAN CORPUSCULAR HGB CONC 33 g/dl (31.0-36.0); MEAN CORPUSCULAR VOLUME 80 fL (80-96); MONOCYTES # (AUTO) 0.8 K/uL (0.1-1.30); MONOCYTES % (AUTO) 8.3 % (2.0-12.0); NEUTROPHILS # (AUTO) 7.8 K/uL (1.8-8.9); NEUTROPHILS % (AUTO) 78.7 % (43.0-81.0); PLATELET COUNT (AUTO) 253 K/uL (150-450); RED BLOOD CELL COUNT(AUTO) 3.22 MIL/uL (4.5-6.0); WHITE BLOOD COUNT (AUTO) 9.8 K/uL (4.3-11.0)
--- NOTE | 2022-03-11 07:30 | NUR ---
RN OPENING NOTE PATIENT IS IN BED AWAKE, ALERT ORIENTED X 1. WITH OXYGEN VIA NASAL CANNULA AT 3L/MIN. SHANKAR CATHETER INTACT AND ATTACHED TO URINE BAG DRAINING TO CLEAR YELLOW URINE. G-TUBE INTACT AND INFUSING WITH JEVITY 1.2 AT 60 ML/HR. RIGHT UPPER ARM MIDLINE IS INTACT AND INFUSING WITH NS AT 75 ML/HR. LEFT HAND SALINE LOCK INTACT AND PATENT. BREATHING UNLABORED AND NOT IN ANY FORM OF DISTRESS. BED IS LOCKED IN LOWEST POSITION, 3 SIDE RAILS UP, CALL LIGHT WITHIN REACH. WILL CONTINUE TO MONITOR THROUGHOUT SHIFT. Addendum: 03/11/22 at 0747 by TONE MATHEWS RN WITH BILATERAL SOFT WRIST RESTRAINTS
[2022-03-11 07:37] LABS: CALCIUM, SERUM 8.3 mg/dL (8.5-10.1); CARBON DIOXIDE 28 mmol/L (21-32); CHLORIDE 111 mmol/L (98-107); CREATININE 1.4 mg/dL (0.6-1.3); GLUCOSE 113 mg/dL (74-106); MAGNESIUM 2.3 mg/dL (1.8-2.4); PHOSPHORUS 3.6 mg/dL (2.5-4.9); POTASSIUM 4.1 mmol/L (3.5-5.1); SODIUM SERUM 143 mmol/L (136-145); UREA NITROGEN, BLOOD 21 mg/dL (7-18)
[2022-03-11 08:00] VITALS: BP 132/74
[2022-03-11] MEDS: PANTOPRAZOLE 40 MG/PACK PACK GT SCH (08:03)
[2022-03-11] MEDS: LACTULOSE 10 G/15 ML UDC (PYXIS) GT SCH ×2 (08:03→20:43)
[2022-03-11] MEDS: THERAHONEY GEL 1.5 OZ TUBE TP SCH (08:04)
[2022-03-11] MEDS: METOCLOPRAMIDE HCL 10 MG/2 ML VIAL IV SCH ×4 (09:38→18:29)
--- NOTE | 2022-03-11 12:41 | NUR ---
RN NOTE DUE REGLAN AT 12 NOT GIVEN BECAUSE IT WAS GIVEN 3 HOURS AGO.
[2022-03-11 16:00] VITALS: BP 137/75
--- NOTE | 2022-03-11 18:56 | NUR ---
RN CLOSING NOTE PATIENT UIS RESTING COMFORTABLY IN BED. PATIENT REMAINED STABLE THROUGHOUT SHIFT. STILL ON NASAL CANNULA AT 3L/MIN. NASOGASTRIC TUBE INTACT AND PATENT. RIGHT UPPER ARM MIDLINE INTACT AND PATENT. BREATHING UNLABORED AND NOT IN ANY FORM OF DISTRESS. ALL HOSPITAL PRECAUTIONS IN PLACE. WILL ENDORSE TO COMPOSITION STONE APPLICATOR NURSE.
--- NOTE | 2022-03-11 21:16 | NUR ---
RN OPENING NOTE RECEIVED PATIENT IN BED SLEEPING BUT EASY TO AROUSED. WITH OXYGEN VIA NASAL CANNULA AT 3L/MIN.OSIEL WELL NO SIGN SOB/DISTRESS NOTED. G-TUBE INTACT AND INFUSING WITH JEVITY 1.2 AT 60 ML/HR. RIGHT UPPER ARM MIDLINE IS INTACT AND INFUSING WITH NS AT 75 ML/HR. LEFT HAND SALINE LOCK INTACT AND PATENT.BED IS LOCKED IN LOWEST POSITION, 3 SIDE RAILS UP, CALL LIGHT WITHIN REACH. WILL CONTINUE TO MONITOR.
[2022-03-12] VITALS: BP 137/75
[2022-03-12] MEDS: METOCLOPRAMIDE HCL 10 MG/2 ML VIAL IV SCH ×2 (00:18→05:12)
[2022-03-12] MEDS: BLOOD SUGAR DIAGNOSTIC 1 EACH STRIP IN SCH ×4 (00:18→18:32)
--- NOTE | 2022-03-12 06:13 | NUR ---
RN CLOSING NOTE PATIENT IN BED SLEEPING BUT EASY TO AROUSED. WITH OXYGEN VIA NASAL CANNULA AT 3L/MIN.OSIEL WELL NO SIGN SOB/DISTRESS NOTED. G-TUBE INTACT AND INFUSING WITH JEVITY 1.2 AT 60 ML/HR.DUE MEDS GIVEN ORDER.ALL NEEDS ATTENDED. RIGHT UPPER ARM MIDLINE IS INTACT AND INFUSING WITH NS AT 75 ML/HR. LEFT HAND SALINE LOCK INTACT AND PATENT.BED IS LOCKED IN LOWEST POSITION, 3 SIDE RAILS UP, CALL LIGHT WITHIN REACH. WILL ENDORSED TO NEXT SHIFT.
[2022-03-12 07:16] LABS: BASOPHILS % (AUTO) 0.1 % (0.0-2.0); EOSINOPHILS % (AUTO) 1.3 % (0.0-6.0); HEMATOCRIT 25 % (39-51); HEMOGLOBIN 8.1 g/dL (13.5-17.5); LYMPHOCYTES % (AUTO) 11.2 % (20.0-44.0); MEAN CORPUSCULAR HGB CONC 33 g/dl (31.0-36.0); MEAN CORPUSCULAR VOLUME 81 fL (80-96); MONOCYTES # (AUTO) 0.9 K/uL (0.1-1.30); MONOCYTES % (AUTO) 11.1 % (2.0-12.0); NEUTROPHILS # (AUTO) 6.5 K/uL (1.8-8.9); NEUTROPHILS % (AUTO) 76.3 % (43.0-81.0); PLATELET COUNT (AUTO) 239 K/uL (150-450); RED BLOOD CELL COUNT(AUTO) 3.09 MIL/uL (4.5-6.0); WHITE BLOOD COUNT (AUTO) 8.6 K/uL (4.3-11.0)
--- NOTE | 2022-03-12 07:25 | NUR ---
RN OPENING NOTE PATIENT IS IN BED ASLEEP BUT EASILY AROUSABLE, ALERT ORIENTED X 1. WITH OXYGEN VIA NASAL CANNULA AT 3L/MIN. SHANKAR CATHETER INTACT AND ATTACHED TO URINE BAG DRAINING TO CLEAR YELLOW URINE. G-TUBE INTACT AND INFUSING WITH JEVITY 1.2 AT 60 ML/HR. RIGHT UPPER ARM MIDLINE IS INTACT AND INFUSING WITH NS AT 75 ML/HR. LEFT HAND SALINE LOCK INTACT AND PATENT. SHANKAR CATHETER INTACT AND ATTACHED TO URINE BAG DRAINING TO A CLEAR YELLOW URINE. BREATHING UNLABORED AND NOT IN ANY FORM OF DISTRESS. BED IS LOCKED IN LOWEST POSITION, 3 SIDE RAILS UP, CALL LIGHT WITHIN REACH. WILL CONTINUE TO MONITOR THROUGHOUT SHIFT.
[2022-03-12 07:40] LABS: CREATININE 1.2 mg/dL (0.6-1.3); MAGNESIUM 2.1 mg/dL (1.8-2.4); PHOSPHORUS 3.5 mg/dL (2.5-4.9); POTASSIUM 4.4 mmol/L (3.5-5.1)
[2022-03-12 08:00] VITALS: BP 112/43
[2022-03-12] MEDS: PANTOPRAZOLE 40 MG/PACK PACK GT SCH (08:20)
[2022-03-12] MEDS: LACTULOSE 10 G/15 ML UDC (PYXIS) GT SCH ×2 (08:20→21:45)
[2022-03-12] MEDS: THERAHONEY GEL 1.5 OZ TUBE TP SCH (08:21)
[2022-03-12] MEDS: IV NS 0.9% 1,000 ML IV PRN (10:10)
[2022-03-12 16:00] VITALS: BP 131/65
--- NOTE | 2022-03-12 19:00 | NUR ---
RN CLOSING NOTE PATIENT UIS RESTING COMFORTABLY IN BED. PATIENT REMAINED STABLE THROUGHOUT SHIFT. STILL ON NASAL CANNULA AT 3L/MIN. NASOGASTRIC TUBE INTACT AND PATENT. RIGHT UPPER ARM MIDLINE INTACT AND PATENT. BREATHING UNLABORED AND NOT IN ANY FORM OF DISTRESS. ALL HOSPITAL PRECAUTIONS IN PLACE. WILL ENDORSE TO INSTRUMENTATION TECH NURSE.
--- NOTE | 2022-03-12 19:30 | NUR ---
MS RN NOTE NOTED IV SITE LFA INFILTERATED AND WINDY MIDLINE OCCLUDED, TRIED TWICE TO INSERT BUT UNABLE. STEVE CHARGE NURSE INSERTED #20 RT HAND, RESUMED IVF NS AT 75 ML/HR, NO S/S OF INFILTRATION NOTED. . Addendum: 03/12/22 at 2027 by GRACIE MARTINEZ RN NEW LINE INSERTED IN LT HAND NOT RT HAND.
[2022-03-12 20:00] VITALS: BP 136/62
--- NOTE | 2022-03-12 20:00 | NUR ---
MS RN NOTE PT IN BED AWAKE, MUMBLING. NO SOB NO DISTRESS OR DISCOMFORT NOTED. NO S/S OF PAIN NOTED. NGT LT NARE INTACT AND PATENT. FEEDING JEVITY INFUSING AT 60 ML/HR, 0 ML RESIDUAL NOTED. LT HAND #20 IV SITE INTACT AND PATENT INFUSING NS @ 75 M/HR, NO S/S OF INFILTRATION NOTED. F/C INTACT AND PATENT DRAINING CLOUDY WITH SEDIMENTS URINE. KEPT HIM DRY AND CLEAN. REPOSITION HIM FOR SKIN MANAGEMENT AND COMFORT MEASURES. ALL NEEDS ATTENDED. VSS. SIDE RAILS UP X 3 AND CALL LIGHT WITHIN REACH. CONTINUE TO MONITOR HIM.
--- NOTE | 2022-03-12 21:00 | NUR ---
MS RN NOTE [facility]MM JARAMILLO GAVE SERIAL JOHANA CONSENT OVER THE PHONE WITNESSED BY PATSY.
[2022-03-12] MEDS: JEVITY 1.2 CAL 1,000 ML BOTTLE GT SCH (22:04)
[2022-03-13] MEDS: BLOOD SUGAR DIAGNOSTIC 1 EACH STRIP IN SCH ×5 (01:24→23:22)
[2022-03-13 04:00] VITALS: BP 141/50
[2022-03-13] MEDS: IV NS 0.9% 1,000 ML IV PRN ×2 (04:50→19:01)
--- NOTE | 2022-03-13 06:51 | NUR ---
MS RN NOTE NO CHANGE IN CONDITION, KEPT HIM DRY AND CLEAN. ALL NEEDS ATTENDED. F/C INTACT AND PATENT DRAINING CLOUDY URINE. SIDE RAILS UP X 3 AND CALL LIGHT WITHIN REACH. WILL ENDORSE TO DAY SHIFT NURSE FOR CONTINUE TO CARE.
[2022-03-13 07:17] LABS: BASOPHILS % (AUTO) 0.1 % (0.0-2.0); EOSINOPHILS % (AUTO) 1.2 % (0.0-6.0); HEMATOCRIT 24 % (39-51); HEMOGLOBIN 7.9 g/dL (13.5-17.5); LYMPHOCYTES # (AUTO) 0.9 K/uL (0.8-4.8); LYMPHOCYTES % (AUTO) 10.6 % (20.0-44.0); MEAN CORPUSCULAR HGB CONC 32 g/dl (31.0-36.0); MEAN CORPUSCULAR VOLUME 81 fL (80-96); MONOCYTES % (AUTO) 10.7 % (2.0-12.0); NEUTROPHILS # (AUTO) 6.9 K/uL (1.8-8.9); NEUTROPHILS % (AUTO) 77.4 % (43.0-81.0); PLATELET COUNT (AUTO) 240 K/uL (150-450); RED BLOOD CELL COUNT(AUTO) 3.03 MIL/uL (4.5-6.0); WHITE BLOOD COUNT (AUTO) 8.9 K/uL (4.3-11.0)
[2022-03-13 07:44] LABS: CALCIUM, SERUM 8.1 mg/dL (8.5-10.1); CREATININE 1.2 mg/dL (0.6-1.3); MAGNESIUM 2.1 mg/dL (1.8-2.4); PHOSPHORUS 3.6 mg/dL (2.5-4.9); POTASSIUM 4.4 mmol/L (3.5-5.1)
--- NOTE | 2022-03-13 07:49 | NUR ---
RN OPENING NOTE RECEIVED PATIENT REPORT FROM NIGHTSHIFT RN. PATIENT CURRENTLY IN BED ALERT AND ORIENTED TIMES 1. ABLE TO MOUTH WORDS TO MAKE NEEDS KNOWN. NO SHORTNESS OF BREATH. NGT ON LEFT NARE, NO RESIDUAL. MEDICAL SURGICAL STATUS NOTED. DIAPER AND SHANKAR CATHETER NOTED, DRAINING CLOUDY URINE WITH SEDIMENTS. IV ACCESS ON LEFT HAND 20 GAUGE RUNNING NORMAL SALINE AT 75 MLS/HR. SAFETY MEASURES IN PLACE, CALL LIGHT WITHIN REACH, BED IN LOWEST LOCKED POSITION, SIDE RAILS UP. WILL CONTINUE PLAN OF CARE AND ANTICIPATE NEEDS.
[2022-03-13 08:00] VITALS: BP 127/71
[2022-03-13] MEDS: LACTULOSE 10 G/15 ML UDC (PYXIS) GT SCH ×2 (08:29→21:54)
[2022-03-13] MEDS: PANTOPRAZOLE 40 MG/PACK PACK GT SCH (08:29)
[2022-03-13] MEDS: THERAHONEY GEL 1.5 OZ TUBE TP SCH (08:29)
[2022-03-13] MEDS ORDERED: CEFEPIME 1 GM in IV D5W 50 ML IV SCH (11:30)
[2022-03-13] MEDS: CEFEPIME 2 GM in IV D5W 100 ML IV SCH (12:30)
[2022-03-13 16:00] VITALS: BP 143/65
[2022-03-13] MEDS: ACETAMINOPHEN 325 MG TABLET PO PRN (16:22)
--- NOTE | 2022-03-13 18:32 | NUR ---
RN CLOSING NOTE PATIENT CURRENTLY IN BED ALERT AND ORIENTED TIMES 1. ABLE TO MOUTH WORDS TO MAKE NEEDS KNOWN. NO SHORTNESS OF BREATH. NGT ON LEFT NARE, NO RESIDUAL. MEDICAL SURGICAL STATUS NOTED. DIAPER AND SHANKAR CATHETER NOTED, DRAINING CLOUDY URINE WITH SEDIMENTS. IV ACCESS ON LEFT HAND 20 GAUGE RUNNING NORMAL SALINE AT 75 MLS/HR. SAFETY MEASURES IN PLACE, CALL LIGHT WITHIN REACH, BED IN LOWEST LOCKED POSITION, SIDE RAILS UP. WILL ENDORSE TO NIGHTSHIFT RN FOR CONTINUATION OF CARE.
[2022-03-13] MEDS: JEVITY 1.2 CAL 1,000 ML BOTTLE GT SCH (18:54)
--- NOTE | 2022-03-13 19:10 | NUR ---
RN NOTES RECEIVED PT FOR CONTINUITY OF CARE. PATIENT A/OX1 IN NO S/SX OF ACUTE DISTRESS AT THIS TIME; CURRENTLY ON 2L OF 02 VIA NC; WITH 02 SAT >95% AT THIS TIME.WITH IV ACCESS PATENT, INTACT AND FLUSHING WELL. WITH RUNNING NS@75CC/HR. WITH NGT ON THE L NARE; SECURED AND INTACT PLACEMENT VERIFIED AUSCULTATION CONNECTED TO TUBE FEEDING ORDERED, PT TOLERATES WELL. ENSURE SAFETY MEASURES WITHIN THE SHIFT. PATIENT BED ALARM IS ON. HEAD OF BED ELEVATED. BED IS LOCKED, IN LOWEST POSITION AND SIDE RAILS UP. CALL LIGHT WITHIN REACH OF THE PATIENT. WILL CONTINUE TO MONITOR AND REASSESS FOR ANY CHANGES AND WILL CARRY OUT ANY ONGOING AND ACTIVE MD ORDER.
[2022-03-13 20:00] VITALS: BP 107/57
[2022-03-13] MEDS: INSULIN REGULAR, HUMAN 100 UNIT/ML 3 ML VIAL SQ PRN (23:23)
[2022-03-14 04:00] VITALS: BP 104/70
--- NOTE | 2022-03-14 04:00 | NUR ---
RN NOTES PATIENT REMAINED TO BE IN NO SIGNS OF ACUTE RESPIRATORY DISTRESS , VITAL SIGNS STABLE AT THIS TIME. REGULAR TURNING AND REPOSITIONING DONE, WOUND CARE AND AM PATIENT CARE RENDERED WILL CONTINUE TO MONITOR AND REASSESS FOR ANY CHANGES THROUGHOUT THE SHIFT.
[2022-03-14] MEDS: INSULIN REGULAR, HUMAN 100 UNIT/ML 3 ML VIAL SQ PRN ×2 (05:44→23:24)
[2022-03-14] MEDS: BLOOD SUGAR DIAGNOSTIC 1 EACH STRIP IN SCH ×4 (05:44→23:23)
[2022-03-14 06:43] LABS: BASOPHILS % (AUTO) 0.1 % (0.0-2.0); EOSINOPHILS % (AUTO) 2.2 % (0.0-6.0); HEMATOCRIT 24 % (39-51); HEMOGLOBIN 7.4 g/dL (13.5-17.5); LYMPHOCYTES # (AUTO) 1.1 K/uL (0.8-4.8); LYMPHOCYTES % (AUTO) 11.3 % (20.0-44.0); MEAN CORPUSCULAR HGB CONC 32 g/dl (31.0-36.0); MEAN CORPUSCULAR VOLUME 81 fL (80-96); MONOCYTES # (AUTO) 1.1 K/uL (0.1-1.30); MONOCYTES % (AUTO) 11.5 % (2.0-12.0); NEUTROPHILS # (AUTO) 7.3 K/uL (1.8-8.9); NEUTROPHILS % (AUTO) 74.9 % (43.0-81.0); PLATELET COUNT (AUTO) 227 K/uL (150-450); RED BLOOD CELL COUNT(AUTO) 2.88 MIL/uL (4.5-6.0); WHITE BLOOD COUNT (AUTO) 9.8 K/uL (4.3-11.0)
--- NOTE | 2022-03-14 06:48 | NUR ---
RN CLOSING NOTE: PATIENT REMAINS IN ROOM IN NO SIGNS OF RESPIRATORY DISTRESS, PATIENT STILL ON 2L OF 02 VIA NC;TOLERATING WELL SATURATING @ >95% SP02. NGT ON L NARE REMAIN INTACT AND SECURED VERIFIED PLACEMENT VIA AUSCULTATION CONNECTED WITH TUBE FEEDING PRESCRIBED; TOLERATING WELL. SAFETY MEASURES IMPLEMENTED, BED IN LOWEST POSITION, LOCKED, SIDE RAILS UP, CALL LIGHT WITHIN REACH. ALL NEEDS AND ORDERS ADDRESSED DURING THE SHIFT. IV ACCESS MAINTAINED INTACT, SECURED AND FLUSHING WELL. ALL DUE MEDS GIVEN ORDERED & SCHEDULED ; PATIENT TOLERATED WELL. PATIENT KEPT CLEAN AND COMFORTABLE WITHIN THE SHIFT. PATIENT ENDORSED TO INCOMING SHIFT RN WITH STABLE VITAL SIGN AND FOR CONTINUITY OF CARE.
[2022-03-14 07:21] LABS: CALCIUM, SERUM 8.1 mg/dL (8.5-10.1); CREATININE 1.2 mg/dL (0.6-1.3); MAGNESIUM 2.1 mg/dL (1.8-2.4); PHOSPHORUS 3.6 mg/dL (2.5-4.9); POTASSIUM 4.5 mmol/L (3.5-5.1)
[2022-03-14 08:00] VITALS: BP 114/68
[2022-03-14] MEDS: PANTOPRAZOLE 40 MG/PACK PACK GT SCH (08:52)
[2022-03-14] MEDS: LACTULOSE 10 G/15 ML UDC (PYXIS) GT SCH ×2 (08:53→20:16)
[2022-03-14] MEDS: THERAHONEY GEL 1.5 OZ TUBE TP SCH (08:53)
[2022-03-14] MEDS: IV NS 0.9% 1,000 ML IV PRN (13:09)
[2022-03-14] MEDS: CEFEPIME 2 GM in IV D5W 100 ML IV SCH (13:09)
[2022-03-14] MEDS: JEVITY 1.2 CAL 1,000 ML BOTTLE GT SCH (13:10)
[2022-03-14] MEDS ORDERED: ANESTHESIA TRAY IN PYXIS 1 EA TRAY MC ONE (15:42)
[2022-03-14 16:00] VITALS: BP 124/50
[2022-03-14] MEDS ORDERED: ACETAMINOPHEN 325 MG TABLET PO PRN (16:00)
[2022-03-14] MEDS: MEMANTINE HCL 5 MG TABLET PO SCH (17:25)
[2022-03-14] MEDS: POTASSIUM CHLORIDE 20 MEQ TAB.PRT.SR PO SCH (17:25)
[2022-03-14] MEDS: APIXABAN 2.5 MG TABLET PO SCH (17:26)
--- NOTE | 2022-03-14 18:58 | NUR ---
RN CLOSING NOTE PATIENT CURRENTLY IN BED ALERT AND ORIENTED TIMES 1. ABLE TO MOUTH WORDS TO MAKE NEEDS KNOWN. NO SHORTNESS OF BREATH. NGT ON LEFT NARE, NO RESIDUAL. MEDICAL SURGICAL STATUS NOTED. DIAPER AND SHANKAR CATHETER NOTED, DRAINING CLOUDY URINE WITH SEDIMENTS. IV ACCESS ON LEFT HAND 20 GAUGE AND LEFT UPPER ARM MIDLINE 18 GAUGE RUNNING NORMAL SALINE AT 75 MLS/HR. SAFETY MEASURES IN PLACE, CALL LIGHT WITHIN REACH, BED IN LOWEST LOCKED POSITION, SIDE RAILS UP. WILL ENDORSE TO [facility] FOR CONTINUATION OF CARE.
--- NOTE | 2022-03-14 19:30 | NUR ---
MS RN OPENING NOTE RECEIVED PATIENT IN BED, SLEEPING. CURRENTLY ON O2 VIA NC AT 2LPM, TOLERATING WELL. NO S/SX OF ACUTE DISTRESS AT THIS TIME. NGT ON LEFT NARE RUNNING JEVITY 1.2 @ 60 CC/HR. IV ACCESS IS ON LEFT HAND #20g RUNNING NS AT 75 CC/HR, PATENT AND INTACT. HAS BILATERAL SOFT WRIST RESTRAINTS. NO CIRCULATION ISSUES NOTED. SHANKAR CATHETER IN PLACE DRAINING YELLOW URINE VIA GRAVITY. ALL SAFETY MEASURES IN PLACE: BED LOCKED IN LOW POSITION, BED ALARM ON. CALL LIGHT WITHIN REACH, SIDE RAILS UP X 3. WILL CONTINUE PLAN OF CARE AND ANTICIPATE NEEDS.
[2022-03-14] MEDS: LEVETIRACETAM SOL (5 ML) 100 MG/ML UDC GT SCH (20:16)
[2022-03-14] MEDS: GABAPENTIN 300 MG CAPSULE PO SCH (20:16)
[2022-03-14] MEDS: NYSTATIN/TRIAMCIN 15 GM CREAM 15 GM TUBE TP SCH (20:25)
--- NOTE | 2022-03-14 22:30 | NUR ---
RN NOTE DUE MEDS GIVEN. PT RESTING IN BED COMFORTABLE. NO S/SX OF ACUTE DISTRESS NOTED AT THIS TIME. WILL CONTINUE TO MONITOR.
[2022-03-15] VITALS (8 sets, daily range): BP systolic 96–135; BP diastolic 58–86
[2022-03-15 03:20] LABS: BILIRUBIN,URINE NEGATIVE (NEGATIVE); COLOR,URINE YELLOW (YELLOW); LEUKOCYTE ESTERASE ,URINE SMALL (NEGATIVE); NITRITE, URINE NEGATIVE (NEGATIVE); PH,URINE 5.5 (5.0-8.0); PROTEIN,URINE NEGATIVE (NEGATIVE); UGLUCOSE NEGATIVE (NEGATIVE); UROBILINOGEN,URINE 0.2 EU/dL (0.2)
[2022-03-15 03:23] LABS: BACTERIA,URINE Few /HPF (None Seen); RBC,URINE 0-2 /HPF (0-2); SQUAMOUS EPITHELIAL CELL,UR Few /HPF (None Seen); YEAST,URINE Moderate /HPF (None Seen)
[2022-03-15] MEDS: IV NS 0.9% 1,000 ML IV PRN (04:15)
[2022-03-15] MEDS: ACETAMINOPHEN 650 MG/SUPP.RECT RC PRN (04:56)
--- NOTE | 2022-03-15 04:57 | NUR ---
RN NOTE PT RUNNING A FEVER OF 100.6. ADMINISTERED TYLENOL RECTAL SUPP SINCE PT IS ALREADY NPO SINCE MIDNIGHT. WILL MONITOR PT CLOSELY.
[2022-03-15] MEDS: BLOOD SUGAR DIAGNOSTIC 1 EACH STRIP IN SCH ×4 (05:15→23:14)
[2022-03-15] MEDS: INSULIN REGULAR, HUMAN 100 UNIT/ML 3 ML VIAL SQ PRN ×2 (05:16→23:15)
--- NOTE | 2022-03-15 06:49 | NUR ---
MS RN CLOSING NOTE NO SIGNIFICANT CHANGE THROUGHOUT THE SHIFT. AM/PM CARE DONE. ALL NEEDS ATTENDED TO. SAFETY MEASURES STILL IN PLACE. WILL ENDORSE TO AM SHIFT NURSE FOR MATT.
[2022-03-15 07:14] LABS: BASOPHILS % (AUTO) 0.2 % (0.0-2.0); EOSINOPHILS % (AUTO) 1.2 % (0.0-6.0); HEMATOCRIT 22 % (39-51); LYMPHOCYTES # (AUTO) 0.6 K/uL (0.8-4.8); LYMPHOCYTES % (AUTO) 7.6 % (20.0-44.0); MEAN CORPUSCULAR HGB CONC 32 g/dl (31.0-36.0); MEAN CORPUSCULAR VOLUME 82 fL (80-96); MONOCYTES # (AUTO) 1.3 K/uL (0.1-1.30); MONOCYTES % (AUTO) 15.6 % (2.0-12.0); NEUTROPHILS # (AUTO) 6.3 K/uL (1.8-8.9); NEUTROPHILS % (AUTO) 75.4 % (43.0-81.0); PLATELET COUNT (AUTO) 212 K/uL (150-450); RED BLOOD CELL COUNT(AUTO) 2.72 MIL/uL (4.5-6.0); WHITE BLOOD COUNT (AUTO) 8.3 K/uL (4.3-11.0)
--- NOTE | 2022-03-15 07:25 | NUR ---
MS RN OPENING NOTES RECEIVED PATIENT IN BED, SLEEPING. RESPONDS TO PHYSICAL STIMULI. CURRENTLY ON O2 VIA NC AT 2LPM, TOLERATING WELL. NO S/SX OF DISTRESS NOTED AT THIS TIME. NGT IN PLACE IN LEFT NARES INTACT AND PATENT. PATIENT HAS BEEN NPO SINCE MIDNIGHT FOR PROCEDURE TODAY. LEFT HAND G#20 RUNNING NS AT 75 ML/HR. BILATERAL SOFT WRIST RESTRAINTS IN PLACE WITH POSITIVE CIRCULATION NOTED. SHANKAR CATHETER IN PLACE DRAINING CLEAR YELLOW URINE VIA GRAVITY. ALL SAFETY MEASURES IN PLACE: BED LOCKED IN LOW POSITION, BED ALARM ON. CALL LIGHT WITHIN REACH, SIDE RAILS UP X 3. WILL CONTINUE PLAN OF CARE FOR THE DAY
[2022-03-15] MEDS ORDERED: PANTOPRAZOLE 40 MG TABLET.DR PO SCH (07:30)
--- NOTE | 2022-03-15 07:43 | NUR ---
RN NOTES RECEIVED CRITICAL LAB VALUE FOR HEMOGLOBIN OF 7.0. CHARGE NURSE MADE AWARE AND WILL NOTIFY .
[2022-03-15 07:46] LABS: CREATININE 1.3 mg/dL (0.6-1.3); MAGNESIUM 2.1 mg/dL (1.8-2.4); POTASSIUM 4.4 mmol/L (3.5-5.1)
[2022-03-15] MEDS: LEVETIRACETAM SOL (5 ML) 100 MG/ML UDC GT SCH ×2 (08:11→21:45)
[2022-03-15] MEDS: LACTULOSE 10 G/15 ML UDC (PYXIS) GT SCH ×2 (08:11→21:46)
[2022-03-15] MEDS: GABAPENTIN 300 MG CAPSULE PO SCH ×2 (08:12→21:46)
[2022-03-15] MEDS: APIXABAN 2.5 MG TABLET PO SCH ×2 (08:12→17:00)
[2022-03-15] MEDS: MEMANTINE HCL 5 MG TABLET PO SCH ×2 (08:12→17:30)
[2022-03-15] MEDS: POTASSIUM CHLORIDE 20 MEQ TAB.PRT.SR PO SCH ×2 (08:12→17:30)
[2022-03-15] MEDS: LOSARTAN POTASSIUM 50 MG TABLET PO SCH (08:12)
[2022-03-15] MEDS: PANTOPRAZOLE 40 MG/PACK PACK GT SCH (08:12)
[2022-03-15] MEDS: FLUOXETINE HCL 20 MG CAPSULE PO SCH (08:13)
[2022-03-15] MEDS: CHOLECALCIFEROL 1,000 UNIT TABLET (VIT D3) PO SCH (08:13)
[2022-03-15] MEDS: ASCORBIC ACID 500 MG TABLET PO SCH (08:13)
[2022-03-15] MEDS: MULTIVITAMINS,THERAGRAN 1 UDTAB TABLET PO SCH (08:13)
[2022-03-15] MEDS: VITAMIN B COMP W-C 1 TAB TABLET PO SCH (08:13)
[2022-03-15] MEDS: ZINC SULFATE 220 MG CAPSULE PO SCH (08:14)
--- NOTE | 2022-03-15 08:15 | NUR ---
RN NOTES PATIENT IS NPO FOR PROCEDURE SCHEDULED TODAY. NO PO MEDS GIVEN AND NO ANTICOAGULANTS GIVEN THIS AM.
[2022-03-15] MEDS: THERAHONEY GEL 1.5 OZ TUBE TP SCH ×2 (09:00→10:02)
[2022-03-15 09:16] LABS: BASOPHILS % (MANUAL) 0 % (0.0-2.0); EOSINOPHILS % (MANUAL) 1 % (0-4); LYMPHOCYTES % (MANUAL) 5 % (16-48); MONOCYTES % (MANUAL) 16 % (0-11.0); NEUTROPHILS % (MANUAL) 78 (42-76)
[2022-03-15] MEDS: NYSTATIN/TRIAMCIN 15 GM CREAM 15 GM TUBE TP SCH ×2 (09:59→21:46)
--- NOTE | 2022-03-15 10:03 | NUR ---
RN NOTES DOUBLE ORDER FOR JAVIER IN THE [facility]. ADMINISTERED 1 DOSE.
--- NOTE | 2022-03-15 10:54 | NUR ---
RN NOTES BLOOD TRANSFUSION STARTED. VSS. TEMP: 98.6 AXILLARY, HR 83, RR 18, BP 123/65, O2 SAT 100% ON 2L VIA NC. WILL CONTINUE TO MONITOR PATIENT THROUGH OUT TRANSFUSION.
--- NOTE | 2022-03-15 12:15 | NUR ---
RN NOTES BLOOD TRANSFUSION ON GOING. UNABLE TO ADMINISTER IV ANTIBIOTIC AT THIS TIME. NOTIFIED PHARMACY THAT THIS TIME DOSE WILL BE GIVEN AT A LATER TIME.
--- NOTE | 2022-03-15 13:20 | NUR ---
RN NOTES END OF TRANSFUSION. VSS. TEMP 99.0 AXILLARY, HR 86, RR 17, BP 133/72, O2 SAT 99% ON 2L VIA NC. NO COMPLICATIONS NOTED DURING TRANSFUSION.
--- NOTE | 2022-03-15 13:44 | NUR ---
RN NOTES PATIENT TRANSFERRED TO OR FOR PROCEDURE. NO LONGER ON UNIT
[2022-03-15] MEDS: CEFEPIME 2 GM in IV D5W 100 ML IV SCH ×2 (15:40→16:26)
--- NOTE | 2022-03-15 16:15 | NUR ---
RN NOTES LEFT UPPER ARM SWOLLEN AND RED NEAR MIDLINE SITE. CHARGE NURSE AND MD NOTIFIED. DISCONTINUED IV ACCESS AND CARRIED OUT DOCTORS ORDERS.
--- NOTE | 2022-03-15 16:30 | NUR ---
RN NOTES R WRIST G#22 ACCESS ESTABLISHED, INTACT AND FLUSHING WELL.
--- NOTE | 2022-03-15 17:02 | NUR ---
RN NOTES NEW MIDLINE INSERTED AT RE, INTACT AND FLUSHING WELL.
--- NOTE | 2022-03-15 19:15 | NUR ---
RN NOTES RECEIVED PT FOR CONTINUITY OF CARE. PATIENT A/OX1 IN NO S/SX OF ACUTE DISTRESS AT THIS TIME; CURRENTLY ON 3L OF 02 VIA NC; WITH 02 SAT >95% AT THIS TIME.WITH IV ACCESS PATENT, INTACT AND FLUSHING WELL. WITH RUNNING NS@75CC/HR. PT S/P PEG PLACEMENT TODAY,SECURED AND INTACT; WILL START TUBE FEEDING JORDAN AM ORDERED. ENSURE SAFETY MEASURES WITHIN THE SHIFT. PATIENT BED ALARM IS ON. HEAD OF BED ELEVATED. BED IS LOCKED, IN LOWEST POSITION AND SIDE RAILS UP. CALL LIGHT WITHIN REACH OF THE PATIENT. WILL CONTINUE TO MONITOR AND REASSESS FOR ANY CHANGES AND WILL CARRY OUT ANY ONGOING AND ACTIVE MD ORDER.
--- NOTE | 2022-03-15 19:19 | NUR ---
RN NOTES PATIENT IN BED IN STABLE CONDITION. SAFETY PRECAUTIONS IN PLACE. ENDORSED REPORT TO THE CLINICAL SPECIALTY REP NURSE FOR MATT
[2022-03-16] MEDS: IV NS 0.9% 1,000 ML IV PRN ×2 (02:49→20:33)
[2022-03-16 04:00] VITALS: BP 128/86
--- NOTE | 2022-03-16 04:00 | NUR ---
RN NOTES PATIENT REMAINED TO BE IN NO SIGNS OF ACUTE RESPIRATORY DISTRESS , VITAL SIGNS STABLE AT THIS TIME. REGULAR TURNING AND REPOSITIONING DONE, WOUND CARE, PIC TAKEN PART OF DC AND AM PATIENT CARE RENDERED WILL CONTINUE TO MONITOR AND REASSESS FOR ANY CHANGES THROUGHOUT THE SHIFT.
[2022-03-16] MEDS: INSULIN REGULAR, HUMAN 100 UNIT/ML 3 ML VIAL SQ PRN (05:33)
[2022-03-16] MEDS: BLOOD SUGAR DIAGNOSTIC 1 EACH STRIP IN SCH ×3 (05:33→17:07)
--- NOTE | 2022-03-16 06:36 | NUR ---
RN CLOSING NOTE: PATIENT REMAINS IN ROOM IN NO SIGNS OF RESPIRATORY DISTRESS, PATIENT STILL ON 2L OF 02 VIA NC;TOLERATING WELL SATURATING @ >95% SP02. STILL ON NPO EXCEPT MEDS; S/P PEG PLACEMENT YESTERDAY. TO START FEEDING TODAY @0800AM. SAFETY MEASURES IMPLEMENTED, BED IN LOWEST POSITION, LOCKED, SIDE RAILS UP, CALL LIGHT WITHIN REACH. ALL NEEDS AND ORDERS ADDRESSED DURING THE SHIFT. IV ACCESS MAINTAINED INTACT, SECURED AND FLUSHING WELL. ALL DUE MEDS GIVEN ORDERED & SCHEDULED ; PATIENT TOLERATED WELL. PATIENT KEPT CLEAN AND COMFORTABLE WITHIN THE SHIFT. PATIENT ENDORSED TO INCOMING SHIFT RN WITH STABLE VITAL SIGN AND FOR CONTINUITY OF CARE.
--- NOTE | 2022-03-16 07:15 | NUR ---
RN OPENING NOTE: PATIENT REMAINS IN ROOM IN NO SIGNS OF RESPIRATORY DISTRESS, PATIENT STILL ON 2L OF 02 VIA NC;TOLERATING WELL SATURATING @ >95% SP02. STILL ON NPO EXCEPT MEDS; S/P PEG PLACEMENT YESTERDAY. TO START FEEDING TODAY @0800AM. SAFETY MEASURES IMPLEMENTED, BED IN LOWEST POSITION, LOCKED, SIDE RAILS UP, CALL LIGHT WITHIN REACH. IV ACCESS MAINTAINED INTACT, SECURED AND FLUSHING WELL. MEDICAL SURGICAL STATUS NOTED. WILL CONTINUE PLAN OF CARE AND ANTICIPATE NEEDS.
[2022-03-16 07:19] LABS: BASOPHILS % (AUTO) 0.2 % (0.0-2.0); EOSINOPHILS % (AUTO) 0.7 % (0.0-6.0); HEMATOCRIT 22 % (39-51); HEMOGLOBIN 7.1 g/dL (13.5-17.5); LYMPHOCYTES # (AUTO) 0.9 K/uL (0.8-4.8); LYMPHOCYTES % (AUTO) 8.2 % (20.0-44.0); MEAN CORPUSCULAR HGB CONC 32 g/dl (31.0-36.0); MEAN CORPUSCULAR VOLUME 81 fL (80-96); MONOCYTES # (AUTO) 1.1 K/uL (0.1-1.30); MONOCYTES % (AUTO) 10.2 % (2.0-12.0); NEUTROPHILS # (AUTO) 8.9 K/uL (1.8-8.9); NEUTROPHILS % (AUTO) 80.7 % (43.0-81.0); PLATELET COUNT (AUTO) 219 K/uL (150-450); RED BLOOD CELL COUNT(AUTO) 2.76 MIL/uL (4.5-6.0)
[2022-03-16] MEDS: LEVETIRACETAM SOL (5 ML) 100 MG/ML UDC GT SCH ×2 (08:09→20:39)
[2022-03-16] MEDS: LACTULOSE 10 G/15 ML UDC (PYXIS) GT SCH ×2 (08:09→20:39)
[2022-03-16] MEDS: GABAPENTIN 300 MG CAPSULE PO SCH ×2 (08:09→20:37)
[2022-03-16] MEDS: MULTIVITAMINS,THERAGRAN 1 UDTAB TABLET PO SCH (08:09)
[2022-03-16] MEDS: ZINC SULFATE 220 MG CAPSULE PO SCH (08:10)
[2022-03-16] MEDS: POTASSIUM CHLORIDE 20 MEQ TAB.PRT.SR PO SCH ×2 (08:10→16:56)
[2022-03-16] MEDS: VITAMIN B COMP W-C 1 TAB TABLET PO SCH (08:10)
[2022-03-16] MEDS: PANTOPRAZOLE 40 MG/PACK PACK GT SCH (08:10)
[2022-03-16] MEDS: MEMANTINE HCL 5 MG TABLET PO SCH ×2 (08:10→16:56)
[2022-03-16] MEDS: ASCORBIC ACID 500 MG TABLET PO SCH (08:10)
[2022-03-16] MEDS: CHOLECALCIFEROL 1,000 UNIT TABLET (VIT D3) PO SCH (08:10)
[2022-03-16] MEDS: LOSARTAN POTASSIUM 50 MG TABLET PO SCH (08:11)
[2022-03-16] MEDS: FLUOXETINE HCL 20 MG CAPSULE PO SCH (08:11)
[2022-03-16] MEDS: APIXABAN 2.5 MG TABLET PO SCH (08:12)
[2022-03-16] MEDS: NYSTATIN/TRIAMCIN 15 GM CREAM 15 GM TUBE TP SCH ×2 (08:12→20:40)
[2022-03-16] MEDS: THERAHONEY GEL 1.5 OZ TUBE TP SCH ×2 (08:12→08:13)
[2022-03-16 08:24] LABS: CALCIUM, SERUM 8.2 mg/dL (8.5-10.1); CARBON DIOXIDE 26 mmol/L (21-32); CHLORIDE 111 mmol/L (98-107); CREATININE 1.4 mg/dL (0.6-1.3); GLUCOSE 97 mg/dL (74-106); MAGNESIUM 2.1 mg/dL (1.8-2.4); PHOSPHORUS 3.8 mg/dL (2.5-4.9); POTASSIUM 4.4 mmol/L (3.5-5.1); SODIUM SERUM 143 mmol/L (136-145); UREA NITROGEN, BLOOD 18 mg/dL (7-18)
[2022-03-16] MEDS ORDERED: FLUCONAZOLE (100 MG) 100 MG TABLET PO SCH (09:00)
[2022-03-16] MEDS: CEFEPIME 2 GM in IV D5W 100 ML IV SCH (11:14)
[2022-03-16 12:00] VITALS: BP 117/74
--- NOTE | 2022-03-16 14:22 | NUR ---
patient had gross hematuria ,sheridan notified and reviewed ManagerCompletes,dc eliquis for now.
--- NOTE | 2022-03-16 15:48 | NUR ---
PATIENT LEFT UNIT WITH RADIOLOGY TEAM TO OBTAIN CT SCAN.
--- NOTE | 2022-03-16 16:05 | NUR ---
PATIENT RETURNED FROM CT SCAN. IV FLUIDS AND TUBE FEEDING BOTH RECONNECTED AND RUNNING ORDERED. WILL CONTINUE PLAN OF CARE AND ANTICIPATE NEEDS.
--- NOTE | 2022-03-16 19:09 | NUR ---
RN CLOSING NOTE: PATIENT REMAINS IN ROOM IN NO SIGNS OF RESPIRATORY DISTRESS, PATIENT STILL ON 2L OF 02 VIA NC;TOLERATING WELL SATURATING @ >95% SP02. STILL ON NPO. GASTRIC PEG TUBE IN PLACE RUNNING JEVITY AT 60 MLS/HR TOLERATING WELL. SAFETY MEASURES IMPLEMENTED, BED IN LOWEST POSITION, LOCKED, SIDE RAILS UP, CALL LIGHT WITHIN REACH. IV ACCESS MAINTAINED INTACT, SECURED AND FLUSHING WELL. MEDICAL SURGICAL STATUS NOTED. ALL DUE MEDS ADMINISTERED. KEPT CLEAN AND DRY THROUGHOUT SHIFT. WILL ENDORSE TO NIGHTSHIFT FOR CONTINUATION OF CARE.
--- NOTE | 2022-03-16 19:45 | NUR ---
RN OPENING NOTES: RECEIVED PATIENT IN BED, AWAKE, ALERTX1 AND RESPONSIVE TO PAINFUL STIMULI. ON 2L OF 02 VIA N/C AND PT TOLERATED WELL. IV ACCESS ON RT WRIST AND RE MIDLINE INTACT AND PATENT. NO S/S OF INFILTRATIONS. RUNNING NS AT 75CC/HR. ON GTUBE FEEDING. RUNNING JEVITY 1.2 AT 60 MLS/HR. PT TOLERATING WELL. SOFT RESTRAINTS ON PLACE. ALL SAFETY MEASURES IN PLACE. BED IN LOWEST POSITION AND LOCKED, SIDE RAILS UP X3, PLACE CALL LIGHT WITHIN REACH. WILL CONTINUE TO MONITOR
[2022-03-16 20:00] VITALS: BP 139/67
--- NOTE | 2022-03-16 20:25 | NUR ---
RN NOTES: CALLED LAB REGARDING 1 UNIT OF BLOOD AND TALKED TO MICHAEL. MENTIONED, BLOOD IS NOT AVAILABLE YET. IT IS A BACK ORDER FROM [facility] . WILL FOLLOW UP.
[2022-03-17] VITALS (8 sets, daily range): BP systolic 79–139; BP diastolic 40–107
[2022-03-17] MEDS: BLOOD SUGAR DIAGNOSTIC 1 EACH STRIP IN SCH ×4 (00:22→17:36)
[2022-03-17] MEDS: INSULIN REGULAR, HUMAN 100 UNIT/ML 3 ML VIAL SQ PRN ×2 (00:23→06:33)
--- NOTE | 2022-03-17 00:23 | NUR ---
RN NOTES: PT'S BLOOD SUGAR 128. NO COVERAGE NEEDED. NO S/S OF HYPER/HYPOGLYCEMIA. WILL CONTINUE TO MONITOR
[2022-03-17] MEDS: JEVITY 1.2 CAL 1,000 ML BOTTLE GT PRN (03:27)
[2022-03-17] MEDS: ACETAMINOPHEN 650 MG/SUPP.RECT RC PRN (05:06)
--- NOTE | 2022-03-17 05:15 | NUR ---
RN NOTES: PT NOTED WITH FACIAL GRIMACING, MOANING. TYLENOL SUPPOSITORY GIVEN PER ORDERED. PT TOLERATED WELL. WILL CONTINUE TO MONITOR
--- NOTE | 2022-03-17 06:35 | NUR ---
RN CLOSING NOTES: PATIENT IN BED, AWAKE, ALERTX1 AND RESPONSIVE TO PAINFUL STIMULI. ON 2L OF 02 VIA N/C AND PT TOLERATED WELL. O2 SAT 96%. IV ACCESS ON RT WRIST AND RE MIDLINE INTACT AND PATENT. NO S/S OF INFILTRATIONS. RUNNING NS AT 75CC/HR. ON GTUBE FEEDING. RUNNING JEVITY 1.2 AT 60 MLS/HR. PT TOLERATING WELL. BILATERAL SOFT RESTRAINTS IN PLACE. Q 2HRS TO CHECK CIRCULATION. SHANKAR CATHETER IN PLACE. DRAINING BY GRAVITY. NOTED NYLA COLOR URINE. ALL SAFETY MEASURES IN PLACE. BED IN LOWEST POSITION AND LOCKED, SIDE RAILS UP X3, PLACE CALL LIGHT WITHIN REACH. WILL ENDORSE TO MORNING SHIFT NURSE.
[2022-03-17 06:57] LABS: BASOPHILS % (AUTO) 0.2 % (0.0-2.0); EOSINOPHILS % (AUTO) 0.4 % (0.0-6.0); HEMATOCRIT 22 % (39-51); LYMPHOCYTES # (AUTO) 0.8 K/uL (0.8-4.8); LYMPHOCYTES % (AUTO) 12.4 % (20.0-44.0); MEAN CORPUSCULAR HGB CONC 32 g/dl (31.0-36.0); MEAN CORPUSCULAR VOLUME 82 fL (80-96); MONOCYTES # (AUTO) 0.7 K/uL (0.1-1.30); NEUTROPHILS # (AUTO) 4.8 K/uL (1.8-8.9); PLATELET COUNT (AUTO) 215 K/uL (150-450); RED BLOOD CELL COUNT(AUTO) 2.67 MIL/uL (4.5-6.0); WHITE BLOOD COUNT (AUTO) 6.3 K/uL (4.3-11.0)
[2022-03-17 07:26] LABS: CALCIUM, SERUM 7.8 mg/dL (8.5-10.1); CARBON DIOXIDE 23 mmol/L (21-32); CHLORIDE 110 mmol/L (98-107); CREATININE 1.4 mg/dL (0.6-1.3); GLUCOSE 114 mg/dL (74-106); PHOSPHORUS 2.9 mg/dL (2.5-4.9); POTASSIUM 4.4 mmol/L (3.5-5.1); SODIUM SERUM 140 mmol/L (136-145); UREA NITROGEN, BLOOD 18 mg/dL (7-18)
--- NOTE | 2022-03-17 07:30 | NUR ---
ms rn note patient in bed. patient is awake, alert and oriented x1. patient is on 2l of o2 via nasal cannula and tolerating well. iv access on rt wrist and right upper arm midline. patient has gtube. gtube patent. patient has jevity 1.2 at 60ml/hr. patient has normal saline running at 75 ml/hr. patient has trejo cathether draining to gravity. patient has bilateral soft restraints in place. will release ciriculation eveery 2 hours. ALL SAFETY MEASURES IN PLACE. BED IN LOWEST POSITION AND LOCKED, SIDE RAILS UP X3, PLACE CALL LIGHT WITHIN REACH. WILL continue to assess throughout shift
[2022-03-17 07:47] LABS: HEMOGLOBIN 6.9 g/dL (13.5-17.5)
--- NOTE | 2022-03-17 08:21 | NUR ---
critical lab hgb 6.9. notified database consultant dr. sheridan rodney. database consultant aware. blood is backordered from [facility]. will followup
[2022-03-17] MEDS: THERAHONEY GEL 1.5 OZ TUBE TP SCH ×2 (09:00→11:48)
[2022-03-17] MEDS: FLUCONAZOLE (100 MG) 100 MG TABLET PO SCH (09:00)
[2022-03-17] MEDS: LOSARTAN POTASSIUM 50 MG TABLET PO SCH (09:00)
[2022-03-17] MEDS ORDERED: LIDOCAINE 1%-EPI 1:100,000 20 ML VIAL TP STA (09:06)
[2022-03-17] MEDS ORDERED: SILVER NITRATE APPLICATOR 1 EA BOX TP STA (09:06)
--- NOTE | 2022-03-17 10:00 | NUR ---
rounds made with dr. rodney. blood transfusion
[2022-03-17] MEDS: LEVETIRACETAM SOL (5 ML) 100 MG/ML UDC GT SCH ×2 (10:06→21:01)
[2022-03-17] MEDS: POTASSIUM CHLORIDE 20 MEQ TAB.PRT.SR PO SCH ×2 (10:06→17:20)
[2022-03-17] MEDS: PANTOPRAZOLE 40 MG/PACK PACK GT SCH (10:06)
[2022-03-17] MEDS: LACTULOSE 10 G/15 ML UDC (PYXIS) GT SCH ×2 (10:06→21:01)
[2022-03-17] MEDS: ASCORBIC ACID 500 MG TABLET PO SCH (10:07)
[2022-03-17] MEDS: MULTIVITAMINS,THERAGRAN 1 UDTAB TABLET PO SCH (10:07)
[2022-03-17] MEDS: GABAPENTIN 300 MG CAPSULE PO SCH ×2 (10:07→21:01)
[2022-03-17] MEDS: CHOLECALCIFEROL 1,000 UNIT TABLET (VIT D3) PO SCH (10:08)
[2022-03-17] MEDS: MEMANTINE HCL 5 MG TABLET PO SCH ×2 (10:16→17:21)
[2022-03-17] MEDS: VITAMIN B COMP W-C 1 TAB TABLET PO SCH (10:16)
[2022-03-17] MEDS: ZINC SULFATE 220 MG CAPSULE PO SCH (10:16)
[2022-03-17] MEDS: FLUOXETINE HCL 20 MG CAPSULE PO SCH (10:16)
[2022-03-17] MEDS: NYSTATIN/TRIAMCIN 15 GM CREAM 15 GM TUBE TP SCH ×2 (11:48→21:01)
--- NOTE | 2022-03-17 11:51 | NUR ---
duplicate order karen
[2022-03-17] MEDS: CEFEPIME 2 GM in IV D5W 100 ML IV SCH (13:01)
[2022-03-17] MEDS: IV NS 0.9% 1,000 ML IV PRN (13:08)
[2022-03-17] MEDS: ACETAMINOPHEN 325 MG TABLET PO PRN (13:18)
--- NOTE | 2022-03-17 18:30 | NUR ---
blood transfusion completed. vital signs stable. no adverse reaction noted
--- NOTE | 2022-03-17 19:30 | NUR ---
ms rn note patient in bed. patient is awake, alert and oriented x1. patient is on 2l of o2 via nasal cannula and tolerating well. iv access on rt wrist and right upper arm midline. patient has gtube. gtube patent. patient has jevity 1.2 at 60ml/hr. patient has normal saline running at 75 ml/hr. patient has trejo cathether draining to gravity. yellow color to gravity. patient has bilateral soft restraints in place. will release circulation eveery 2 hours. ALL SAFETY MEASURES IN PLACE. BED IN LOWEST POSITION AND LOCKED, SIDE RAILS UP X3, PLACE CALL LIGHT WITHIN REACH. endorsed to night warehouse selector nurse
--- NOTE | 2022-03-17 19:40 | NUR ---
RN OPENING NOTES: RECEIVED PATIENT IN BED, AWAKE, ALERTX1 AND RESPONSIVE WITH UNCLEAR SPEECH. ON 2L OF 02 VIA N/C AND PT TOLERATED WELL. O2 SAT 96%. IV ACCESS ON RT WRIST AND RE MIDLINE INTACT AND PATENT. NO S/S OF INFILTRATIONS. RUNNING NS AT 75CC/HR. ON GTUBE FEEDING. RUNNING JEVITY 1.2 AT 60 MLS/HR. PT TOLERATING WELL. BILATERAL SOFT RESTRAINTS IN PLACE. SHANKAR CATHETER IN PLACE. DRAINING BY GRAVITY. NOTED [place] COLOR URINE. ALL SAFETY MEASURES IN PLACE. BED IN LOWEST POSITION AND LOCKED, SIDE RAILS UP X3, PLACE CALL LIGHT WITHIN REACH. WILL CONTINUE TO MONITOR.
[2022-03-18] MEDS: BLOOD SUGAR DIAGNOSTIC 1 EACH STRIP IN SCH ×4 (00:26→17:18)
[2022-03-18] MEDS: INSULIN REGULAR, HUMAN 100 UNIT/ML 3 ML VIAL SQ PRN ×2 (00:27→06:16)
--- NOTE | 2022-03-18 00:27 | NUR ---
RN NOTES: PT'S BLOOD SUGAR 100. NO COVERAGE NEEDED. NO S/SOF HYPER/HYPOGLYCEMIA. WILL CONTINUE TO MONITOR
[2022-03-18 04:00] VITALS: BP 148/57
[2022-03-18] MEDS: JEVITY 1.2 CAL 1,000 ML BOTTLE GT PRN (04:42)
[2022-03-18 05:58] LABS: BASOPHILS % (AUTO) 0.3 % (0.0-2.0); EOSINOPHILS % (AUTO) 1.6 % (0.0-6.0); HEMATOCRIT 23 % (39-51); HEMOGLOBIN 7.4 g/dL (13.5-17.5); LYMPHOCYTES % (AUTO) 18.4 % (20.0-44.0); MEAN CORPUSCULAR HGB CONC 32 g/dl (31.0-36.0); MEAN CORPUSCULAR VOLUME 81 fL (80-96); MONOCYTES # (AUTO) 0.8 K/uL (0.1-1.30); MONOCYTES % (AUTO) 15.8 % (2.0-12.0); NEUTROPHILS # (AUTO) 3.4 K/uL (1.8-8.9); NEUTROPHILS % (AUTO) 63.9 % (43.0-81.0); PLATELET COUNT (AUTO) 188 K/uL (150-450); RED BLOOD CELL COUNT(AUTO) 2.88 MIL/uL (4.5-6.0); WHITE BLOOD COUNT (AUTO) 5.4 K/uL (4.3-11.0)
--- NOTE | 2022-03-18 06:24 | NUR ---
RN CLOSING NOTES: PATIENT IN BED, AWAKE, ALERTX1 AND RESPONSIVE WITH UNCLEAR SPEECH. ON 2L OF 02 VIA N/C AND PT TOLERATED WELL. O2 SAT 100%. IV ACCESS ON RT WRIST AND RE MIDLINE INTACT AND PATENT. NO S/S OF INFILTRATIONS. RUNNING NS AT 75CC/HR. ON GTUBE FEEDING. RUNNING JEVITY 1.2 AT 60 MLS/HR. TOLERATING WELL. BILATERAL SOFT RESTRAINTS IN PLACE. RELEASED Q 2HRS TO CHECK CIRCULATION. SHANKAR CATHETER IN PLACE. DRAINING BY GRAVITY. NOTED [place] COLOR URINE. ALL DUE MEDS GIVEN ORDERED. BLOOD SUGAR 117. NO COVERAGE NEEDED. NO S/S OF HYPER/HYPOGLYCEMIA. ALL SAFETY MEASURES IN PLACE. BED IN LOWEST POSITION AND LOCKED, SIDE RAILS UP X3, PLACE CALL LIGHT WITHIN REACH. WILL ENDORSE TO MORNING SHIFT NURSE.
[2022-03-18] MEDS: IV NS 0.9% 1,000 ML IV PRN (06:56)
[2022-03-18 06:58] LABS: CALCIUM, SERUM 8.2 mg/dL (8.5-10.1); CARBON DIOXIDE 25 mmol/L (21-32); CHLORIDE 108 mmol/L (98-107); CREATININE 1.3 mg/dL (0.6-1.3); GLUCOSE 127 mg/dL (74-106); MAGNESIUM 1.8 mg/dL (1.8-2.4); POTASSIUM 4.6 mmol/L (3.5-5.1); SODIUM SERUM 139 mmol/L (136-145); UREA NITROGEN, BLOOD 20 mg/dL (7-18)
--- NOTE | 2022-03-18 07:20 | NUR ---
MS RN OPENING NOTE: RECEIVED PT IN BED, AWAKE, A/OX1. ABLE TO MAKE SIMPLE NEEDS KNOWN. NO COMPLAINTS OF PAIN/DISCOMFORT AT THIS TIME. ON 2L NC WITH NO S/S OF RESPIRATORY DISTRESS. IV ACCESS ON R WRIST #22G, INTACT AND PATENT. SALINE LOCKED. HE ALSO HAS A RE MIDLINE WITH NS RUNNING AT 75ML/HR, INTACT AND RUNNING WELL. BOTH IV SITES HAVE NO S/S OF INFILTRATION. PT. HAS G-TUBE WITH JEVITY 1.2 RUNNING AT 60 ML/HR. G-TUBE PATENT AND INTACT. 3ML RESIDUAL NOTED. DRESSING CLEAN DRY AND INTACT. PT. HAS SACRAL WOUND, SCROTAL REDNESS, R HIP REDNESS AND L HEEL PRESSURE ULCER. WOUND TREATMENT WILL BE FOLLOWED ORDERED. SAFETY MEASURES IN PLACE: BED IS IN LOWEST POSITION AND LOCKED. SIDE RAILS UP X2. CALL LIGHT WITHIN EASY REACH. HOB ELEVATED. BED ALARM ON. WILL TURN AND REPOSITION Q2H. WILL CONTINUE TO MONITOR PT. FOR ANY CHANGES.
[2022-03-18] MEDS ORDERED: CEFE2FRO IV (08:43)
[2022-03-18] MEDS ORDERED: FLUC100T8 PO (08:43)
[2022-03-18] MEDS: THERAHONEY GEL 1.5 OZ TUBE TP SCH ×2 (08:45→09:11)
[2022-03-18] MEDS: NYSTATIN/TRIAMCIN 15 GM CREAM 15 GM TUBE TP SCH (08:45)
[2022-03-18] MEDS: PANTOPRAZOLE 40 MG/PACK PACK GT SCH (08:45)
[2022-03-18] MEDS: CHOLECALCIFEROL 1,000 UNIT TABLET (VIT D3) PO SCH (08:45)
[2022-03-18] MEDS: LEVETIRACETAM SOL (5 ML) 100 MG/ML UDC GT SCH (08:46)
[2022-03-18] MEDS: LACTULOSE 10 G/15 ML UDC (PYXIS) GT SCH (08:46)
[2022-03-18] MEDS: POTASSIUM CHLORIDE 20 MEQ TAB.PRT.SR PO SCH ×2 (08:46→16:16)
[2022-03-18] MEDS: GABAPENTIN 300 MG CAPSULE PO SCH (08:46)
[2022-03-18] MEDS: VITAMIN B COMP W-C 1 TAB TABLET PO SCH (08:46)
[2022-03-18] MEDS: ASCORBIC ACID 500 MG TABLET PO SCH (08:46)
[2022-03-18] MEDS: MULTIVITAMINS,THERAGRAN 1 UDTAB TABLET PO SCH (08:46)
[2022-03-18] MEDS: FLUCONAZOLE (100 MG) 100 MG TABLET PO SCH (08:46)
[2022-03-18] MEDS: MEMANTINE HCL 5 MG TABLET PO SCH ×2 (08:46→16:16)
[2022-03-18] MEDS: ZINC SULFATE 220 MG CAPSULE PO SCH (08:47)
[2022-03-18] MEDS: FLUOXETINE HCL 20 MG CAPSULE PO SCH (08:47)
[2022-03-18] MEDS: LOSARTAN POTASSIUM 50 MG TABLET PO SCH (08:47)
[2022-03-18] MEDS: CEFEPIME 2 GM in IV D5W 100 ML IV SCH (11:55)
--- NOTE | 2022-03-18 14:56 | NUR ---
RN NOTS: RECEIVED A CALL FROM THE LAB PT IS POSITIVE FOR COVID, CHARGE NURSE AWARE, DOCTOR MISAEL AWARE, PER CASE MANGER PT CAN NOT BE DISCHARGED
[2022-03-18 15:00] LABS: LYMPHOCYTES % (MANUAL) 15 % (16-48); MONOCYTES % (MANUAL) 8 % (0-11.0); NEUTROPHILS % (MANUAL) 77 (42-76)
[2022-03-18 16:00] VITALS: BP 115/54
[2022-03-18] MEDS ORDERED: DEXAMETHASONE SOD PHOSPHATE 10 MG/ML VIAL IV SCH (16:00)
--- NOTE | 2022-03-18 18:31 | NUR ---
MS LOCATOR SPECIALIST NOTE: PT DC'ED BACK TO [facility]IA AM[facility]ULANCE. HE REMAINS TO BE A/OX 1, SELF ONLY. ABLE TO ANSWER YES OR NO QUESTIONS. NO COMPLAINTS OF PAIN/DISCOMFORT AT THIS TIME. VS STABLE: T - 97.9 F; HR - 87; RESP - 18 BPM; O2 SAT - 100%; BP - 119/62. ON 2L NC WITH NO S/S OF RESPIRATORY DISTRESS. IV ACCESS ON RE MIDLINE WILL REMAIN FOR 2 MORE DAYS OF CONTINUED IV ABX IN SNF. R WRIST #22G IV REMOVED, PRESSURE APPLIED, DRESSING C/D/I. NO S/S OF BLEEDING NOTED. SHANKAR CATHETER WILL REMAIN. FC PATENT AND RUNNING WELL WITH URINE OUTPUT OF 1725 ML OF MILD HEMATURIA IN THE MORNING THAT TURNED INTO CLEAR YELLOW URINE FROM NOON TO THE REST OF THE SHIFT. PT. TESTED POSITIVE FOR RAPID COVID TEST PRIOR TO DC. MD AND SNF AWARE AND HAS COVID ROOM READY. WRITTEN DC INSTRUCTIONS AND PT. BELONGING LIST SIGNED BY 2 RNS. REPORT GIVEN TO SNF [facility]UAN CHAO OVER THE PHONE. PROVIDED EDUCATIONAL MATERIALS AND EDUCATED SNF JUAN CHAO ON NEW MEDICATIONS & DC INSTRUCTIONS. PT. LEFT THE UNIT VIA GURNEY, WITH 2 EMT'S AT 1830.
== END 2022-03-18 18:42 | DRG 853 ==
LOC: ER 19:19 → TELE1 22:33 → MEDSG1 03-05 16:28
PROVIDERS: ADMIT Nurse Practitioner Family; ATTEND Internal Medicine
PROC: 05H933Z Insertion of Infusion Device into Right Brachial Vein, Percutaneous Approach (ICD-10-PCS; 2022-03-01)
PROC: 30233N1 Transfusion of Nonautologous Red Blood Cells into Peripheral Vein, Percutaneous Approach (ICD-10-PCS; 2022-03-10)
PROC: 05HA33Z Insertion of Infusion Device into Left Brachial Vein, Percutaneous Approach (ICD-10-PCS; 2022-03-10)
PROC: 0QB10ZZ Excision of Sacrum, Open Approach (ICD-10-PCS; principal; 2022-03-11)
PROC: 05HC33Z Insertion of Infusion Device into Left Basilic Vein, Percutaneous Approach (ICD-10-PCS; 2022-03-14)
PROC: 0DH63UZ Insertion of Feeding Device into Stomach, Percutaneous Approach (ICD-10-PCS; 2022-03-15)
PROC: 05H933Z Insertion of Infusion Device into Right Brachial Vein, Percutaneous Approach (ICD-10-PCS; 2022-03-15)
PROC: 0DH63UZ Insertion of Feeding Device into Stomach, Percutaneous Approach (ICD-10-PCS; 2022-03-15)
DX: A41.9 Sepsis, unspecified organism (principal); G93.41 Metabolic encephalopathy; L89.154 Pressure ulcer of sacral region, stage 4; J69.0 Pneumonitis due to inhalation of food and vomit; N17.0 Acute kidney failure with tubular necrosis; I21.4 Non-ST elevation (NSTEMI) myocardial infarction; U07.1 COVID-19; L97.419 Non-pressure chronic ulcer of right heel and midfoot with unspecified severity; L97.429 Non-pressure chronic ulcer of left heel and midfoot with unspecified severity; I48.92 Unspecified atrial flutter; E87.2 Acidosis; B37.49 Other urogenital candidiasis; E87.0 Hyperosmolality and hypernatremia; R64 Cachexia; Z20.822 Contact with and (suspected) exposure to COVID-19; R65.20 Severe sepsis without septic shock; Z66 Do not resuscitate; K29.70 Gastritis, unspecified, without bleeding; K76.89 Other specified diseases of liver; F32.9 Major depressive disorder, single episode, unspecified; Z79.899 Other long term (current) drug therapy; Z86.14 Personal history of Methicillin resistant Staphylococcus aureus infection; Z90.49 Acquired absence of other specified parts of digestive tract; K56.41 Fecal impaction; D75.839 Thrombocytosis, unspecified; F02.80 Dementia in other diseases classified elsewhere, unspecified severity, without behavioral disturbance, psychotic disturbance, mood disturbance, and anxiety; G30.9 Alzheimer's disease, unspecified; I10 Essential (primary) hypertension; I25.10 Atherosclerotic heart disease of native coronary artery without angina pectoris; Z87.19 Personal history of other diseases of the digestive system; I48.91 Unspecified atrial fibrillation; E88.09 Other disorders of plasma-protein metabolism, not elsewhere classified; F09 Unspecified mental disorder due to known physiological condition; D72.823 Leukemoid reaction; D63.8 Anemia in other chronic diseases classified elsewhere; L89.216 Pressure-induced deep tissue damage of right hip; S61.411A Laceration without foreign body of right hand, initial encounter; X58.XXXA Exposure to other specified factors, initial encounter; Y92.9 Unspecified place or not applicable
CPT/HCPCS: 36410; 36415; 43246; 70450-TC; 71045-TC; 71250-TC; 74018; 80048-TC; 80076-TC; 80202-TC; 81001; 82140-TC; 82607-TC; 82728-TC; 82784; 82962-TC; 83540-TC; 83605-TC; 83735-TC; 83880; 84100-TC; 84155; 84165; 84439-TC; 84443-TC; 84484-TC; 85025-TC; 85378-TC; 85396; 85730-TC; 86140-TC; 86334; 86850-TC; 87040-TC; 87081-TC; 87086-TC; 92526; 92611-TC; 93307-TC; 93971-TC; 94799-TC; A6253; A6403; A9563; C9113; C9803; G0378; G0480; J0692; J1100; J1644; J1815; J1953; J2405; J2543; J2704; J2765; J3370; J3475; J3480; J3490; J7030; J7040; J7050; J7060; P9016; Q9967